=== PATIENT | male | born 1975 | race Two or more races ===

== ENCOUNTER 2017-08-29 18:06 | Inpatient (IN) | payer MEDICAID ==
[~2017-08-29] VITALS: Ht 162.6 cm; Wt 77.1 kg
[2017-08-29] MEDS ORDERED: LORazepam Inj 2mg/ml 1ml IV ONE (18:30)
--- NOTE | 2017-08-29 18:57 | Emergency Room Report ---
History of Present Illness General Chief Complaint: Gastrointestinal Bleed Source: Patient Present Illness HPI Patient's 42-year-old male brought in by family member after increased hematemesis. The patient had had prior history of alcohol abuse. He reportedly has not had alcohol for one week. The patient reported having generalized chills. He denies any prior history of liver disease. He reported having generalized body ache. Allergies: Coded Allergies: No Known Allergies (Unverified , 08/29/17) Patient History Past Medical History: see triage record Reviewed Nursing Documentation: PMH: Agreed, PSxH: Agreed Nursing Documentation-PMH Past Medical History: No Stated History Review of Systems All Other Systems: negative except mentioned in HPI Physical Exam Vital Signs Date Time Temp Pulse Resp B/P (MAP) Pulse Ox O2 Delivery O2 Flow Rate FiO2 08/29/17 18:12 101.1 106 18 133/75 98 Room Air Sp02 EP Interpretation: reviewed, normal General Appearance: normal inspection, well appearing, no apparent distress, alert, GCS 15 Head: atraumatic ENT: normal ENT inspection, hearing grossly normal, normal voice Neck: normal inspection, full range of motion, supple, no bony tend Respiratory: normal inspection, lungs clear, normal breath sounds, no respiratory distress, no retraction, no wheezing Cardiovascular #1: regular rate, rhythm, no edema Gastrointestinal: normal inspection, normal bowel sounds, non tender, soft, no guarding, no hernia Genitourinary: no CVA tenderness Musculoskeletal: normal inspection, back normal, normal range of motion Neurologic: normal inspection, alert, oriented x3, responsive, speech normal Psychiatric: normal inspection, judgement/insight normal, mood/affect normal Skin: normal inspection, normal color, no rash Medical Decision Making Diagnostic Impression: Primary Impression: Gastrointestinal hemorrhage Additional Impressions: Influenza B Thrombocytopenia Cirrhosis Mild epistaxis ER Course Patient presented with fever and vomiting. Differential diagnosis included wasn 't limited to pneumonia, urinary tract infection, drug fever, allergic reaction , sepsis, cholecystitis, alcohol withdrawal among others.The patient was noted to be febrile. The patient was consented for platelet transfusion . He was noted to be thrombocytopenic with a platelet count of 30s. Patient was noted to have any active hemorrhage in emergency department. Did not appear to require transfusion as initial hgb was adequate. Patient was positive for influenza A. The patient was given IV protonix. Dr. Das was contacted for for inpatient management Labs Test 08/29/17 18:50 White Blood Count 6.5 K/UL (4.8-10.8) Red Blood Count 3.56 M/UL (4.70-6.10) Hemoglobin 12.3 G/DL (14.2-18.0) Hematocrit 36.4 % (42.0-52.0) Mean Corpuscular Volume 102 FL (80-99) Mean Corpuscular Hemoglobin 34.4 PG (27.0-31.0) Mean Corpuscular Hemoglobin Concent 33.7 G/DL (32.0-36.0) Red Cell Distribution Width 12.9 % (11.6-14.8) Platelet Count 36 K/UL (150-450) Mean Platelet Volume 8.3 FL (6.5-10.1) Neutrophils (%) (Auto) % (45.0-75.0) Lymphocytes (%) (Auto) % (20.0-45.0) Monocytes (%) (Auto) % (1.0-10.0) Eosinophils (%) (Auto) % (0.0-3.0) Basophils (%) (Auto) % (0.0-2.0) Differential Total Cells Counted 100 Neutrophils % (Manual) 47 % (45-75) Lymphocytes % (Manual) 46 % (20-45) Monocytes % (Manual) 3 % (1-10) Eosinophils % (Manual) 0 % (0-3) Basophils % (Manual) 0 % (0-2) Band Neutrophils 4 % (0-8) Platelet Estimate Decreased Platelet Morphology Normal Polychromasia 1+ Macrocytosis 2+ Prothrombin Time 19.4 SEC (9.30-11.50) Prothromb Time International Ratio 1.8 (0.9-1.1) Activated Partial Thromboplast Time 51 SEC (23-33) Urine Color Kamila Urine Appearance Clear Urine pH 6 (4.5-8.0) Urine Specific [place] 1.015 (1.005-1.035) Urine Protein 1+ (NEGATIVE) Urine Glucose (UA) Negative (NEGATIVE) Urine Ketones Negative (NEGATIVE) Urine Occult Blood 3+ (NEGATIVE) Urine Nitrite Negative (NEGATIVE) Urine Bilirubin Negative (NEGATIVE) Urine Ictotest Positive Urine Urobilinogen Normal MG/DL (0.0-1.0) Urine Leukocyte Esterase 1+ (NEGATIVE) Urine RBC 2-4 /HPF (0 - 0) Urine WBC 2-4 /HPF (0 - 0) Urine Squamous Epithelial Cells Few /LPF (NONE/OCC) Urine Bacteria Occasional /HPF (NONE) Sodium Level 129 MMOL/L (136-145) Potassium Level 3.2 MMOL/L (3.5-5.1) Chloride Level 95 MMOL/L (98-107) Carbon Dioxide Level 24 MMOL/L (21-32) Anion Gap 10 mmol/L (5-15) Blood Urea Nitrogen 8 mg/dL (7-18) Creatinine 1.0 MG/DL (0.55-1.30) Estimat Glomerular Filtration Rate > 60 mL/min (>60) Glucose Level 102 MG/DL (74-106) Lactic Acid Level 1.30 mmol/L (0.66-2.22) Calcium Level 7.9 MG/DL (8.5-10.1) Total Bilirubin 1.8 MG/DL (0.2-1.0) Direct Bilirubin 1.0 MG/DL (0.0-0.3) Aspartate Amino Transf (AST/SGOT) 197 U/L (15-37) Alanine Aminotransferase (ALT/SGPT) 48 U/L (12-78) Alkaline Phosphatase 123 U/L (46-116) Total Creatine Kinase 944 U/L (26-308) Creatine Kinase MB 3.5 NG/ML (0.0-3.6) Creatine Kinase MB Relative Index 0.3 Troponin I 0.036 ng/mL (0.000-0.056) Total Protein 8.3 G/DL (6.4-8.2) Albumin 2.8 G/DL (3.4-5.0) Globulin 5.5 g/dL Albumin/Globulin Ratio 0.5 (1.0-2.7) Last Vital Signs Date Time Temp Pulse Resp B/P (MAP) Pulse Ox O2 Delivery O2 Flow Rate FiO2 08/29/17 18:12 101.1 106 18 133/75 98 Room Air Status: improved Disposition: HOME, SELF-CARE Condition: Stable Referrals: NOT CHOSEN IPA/,REFERRING (PCP) Hermes Wagoner Aug 29, 2017 18:57
[2017-08-29 19:10] VITALS: BP 141/69
[2017-08-29 19:41] LABS: HEMATOCRIT 36.4 % (42.0-52.0); HEMOGLOBIN 12.3 G/DL (14.2-18.0); MEAN CORPUSCULAR VOLUME 102 FL (80-99); PLATELET COUNT 36 K/UL (150-450); RED BLOOD COUNT 3.56 M/UL (4.70-6.10); RED CELL DISTRIBUTION WIDTH 12.9 % (11.6-14.8); WHITE BLOOD COUNT 6.5 K/UL (4.8-10.8)
[2017-08-29 19:43] LABS: APPEARANCE,URINE CLEAR; BILIRUBIN, URINE NEGATIVE (NEGATIVE); GLUCOSE, URINE (UA) NEGATIVE (NEGATIVE); KETONES,URINE NEGATIVE (NEGATIVE); LEUKOCYTE ESTERASE ,URINE 1+ (NEGATIVE); NITRITE,URINE NEGATIVE (NEGATIVE); PH,URINE 6 (4.5-8.0); PROTEIN,URINE 1+ (NEGATIVE); UROBILINOGEN,URINE NORMAL MG/DL (0.0-1.0)
[2017-08-29 19:50] LABS: COLOR,URINE AMBER
[2017-08-29] MEDS ORDERED: NKM (19:50)
[2017-08-29 19:57] LABS: INR 1.8 (0.9-1.1)
[2017-08-29] MEDS ORDERED: cefTRIAXone 1 GM in NS 55 ML IVPB ONE (20:15)
[2017-08-29 20:20] LABS: ANION GAP 10 mmol/L (5-15); BLOOD UREA NITROGEN 8 mg/dL (7-18); CALCIUM 7.9 MG/DL (8.5-10.1); CARBON DIOXIDE 24 MMOL/L (21-32); CHLORIDE 95 MMOL/L (98-107); POTASSIUM 3.2 MMOL/L (3.5-5.1); SODIUM 129 MMOL/L (136-145)
[2017-08-29] MEDS ORDERED: Azithromycin 250 MG in D5W 275 ML IVPB SCH (20:30)
[2017-08-29] MEDS ORDERED: Oseltamivir 75mg cap ORAL SCH (20:30)
[2017-08-29] MEDS ORDERED: Azithromycin 500mg Inj IV ONE (20:39)
[2017-08-29 20:43] LABS: ALANINE AMINOTRANSFERASE 48 U/L (12-78); ALBUMIN 2.8 G/DL (3.4-5.0); ALBUMIN/GLOBULIN RATIO 0.5 (1.0-2.7); ALKALINE PHOSPHATASE 123 U/L (46-116); ASPARTATE AMINO TRANSFERASE 197 U/L (15-37); BILIRUBIN,TOTAL 1.8 MG/DL (0.2-1.0); CKMB 3.5 NG/ML (0.0-3.6); CREATINE KINASE 944 U/L (26-308)
[2017-08-29 21:00] VITALS: BP 142/67
[2017-08-29] MEDS ORDERED: Pantoprazole Inj IVP ONE (21:45)
[2017-08-29 23:00] VITALS: BP 132/62
[2017-08-29] MEDS ORDERED: Miralax 17gm pkt ORAL PRN (23:00)
[2017-08-29] MEDS ORDERED: Pantoprazole 80 MG in NS 250 ML IV SCH (23:00)
[2017-08-29] MEDS ORDERED: Mylanta II UD 30ml ORAL PRN (23:00)
[2017-08-29] MEDS ORDERED: LORazepam Inj 2mg/ml 1ml IV PRN (23:00)
[2017-08-29] MEDS: Thiamine HCl 100 MG, Folic Acid 1 MG, Magnesium Sulfate 2,000 MG, Multivitamin - 12 Inj... IV SCH ×5 (23:30)
[2017-08-30] VITALS (9 sets, daily range): BP systolic 113–149; BP diastolic 36–92
[2017-08-30] MEDS ORDERED: chlordiazePOXIDE 25mg Cap ORAL ONE (00:15)
[2017-08-30] MEDS ORDERED: LORazepam Inj 2mg/ml 1ml IV ONE (00:15)
[2017-08-30] MEDS ORDERED: Pantoprazole Inj ONE (00:25)
[2017-08-30] MEDS: Thiamine HCl 100 MG, Folic Acid 1 MG, Magnesium Sulfate 2,000 MG, Multivitamin - 12 Inj... IV SCH ×20 (01:02→07:08)
[2017-08-30] MEDS: Octreotide Acetate 500 MCG in Sodium Chloride 500ML 499 ML IV SCH ×4 (01:48→21:20)
[2017-08-30] MEDS ORDERED: Thiamine HCl 100mg/ml 2 ml Inj ONE ×2 (03:38→12:02)
[2017-08-30] MEDS ORDERED: Folic Acid 5mg/ml Vial IV ONE (03:39)
[2017-08-30] MEDS ORDERED: MVI-12 10ml Inj IV ONE (03:40)
[2017-08-30 04:54] LABS: HEMATOCRIT 32.6 % (42.0-52.0); HEMOGLOBIN 11.1 G/DL (14.2-18.0); MEAN CORPUSCULAR VOLUME 102 FL (80-99); PLATELET COUNT 73 K/UL (150-450); RED BLOOD COUNT 3.19 M/UL (4.70-6.10); RED CELL DISTRIBUTION WIDTH 12.8 % (11.6-14.8); WHITE BLOOD COUNT 7.5 K/UL (4.8-10.8)
[2017-08-30 05:15] LABS: ANION GAP 10 mmol/L (5-15); BLOOD UREA NITROGEN 8 mg/dL (7-18); CALCIUM 7.6 MG/DL (8.5-10.1); CARBON DIOXIDE 22 MMOL/L (21-32); CHLORIDE 97 MMOL/L (98-107); POTASSIUM 2.9 MMOL/L (3.5-5.1); SODIUM 129 MMOL/L (136-145)
[2017-08-30 05:18] LABS: ALANINE AMINOTRANSFERASE 41 U/L (12-78); ALBUMIN 2.6 G/DL (3.4-5.0); ALKALINE PHOSPHATASE 106 U/L (46-116); ASPARTATE AMINO TRANSFERASE 160 U/L (15-37); BILIRUBIN,DIRECT 1.2 MG/DL (0.0-0.3); INR 1.8 (0.9-1.1)
[2017-08-30] MEDS ORDERED: D5 1/2NS w/KCl 40meq 1000ml 1,000 ML IV SCH (07:00)
--- NOTE | 2017-08-30 08:58 | General Progress Note ---
Assessment/Plan Problem List: (1) Cirrhosis ICD Codes: K74.60 - Unspecified cirrhosis of liver SNOMED: 65044430 (2) Thrombocytopenia ICD Codes: D69.6 - Thrombocytopenia, unspecified SNOMED: 948924362 (3) Gastrointestinal hemorrhage ICD Codes: K92.2 - Gastrointestinal hemorrhage, unspecified SNOMED: 22387430 Assessment/Plan npo ppi abx octreotide EGD in AM vit K Subjective ROS Limited/Unobtainable: Yes Allergies: Coded Allergies: No Known Allergies (Unverified , 08/29/17) Objective Last 24 Hour Vital Signs Date Time Temp Pulse Resp B/P (MAP) Pulse Ox O2 Delivery O2 Flow Rate FiO2 08/30/17 06:53 100.5 97 16 137/67 98 Room Air 08/30/17 04:30 100.5 93 19 08/30/17 04:00 99.6 109 22 08/30/17 03:30 99.5 102 15 08/30/17 03:30 99.5 102 15 122/82 100 Room Air 08/30/17 02:45 100.5 107 21 08/30/17 02:30 101.9 110 21 08/30/17 01:22 101.1 107 23 129/69 99 Room Air 08/29/17 23:00 100.9 99 20 132/62 99 Room Air 08/29/17 21:00 100.9 104 21 142/67 99 Room Air 08/29/17 19:10 100.0 98 20 141/69 100 Room Air 08/29/17 18:12 101.1 106 18 133/75 98 Room Air Intake and Output 08/29/17 08/30/17 19:00 07:00 Intake Total 327 ml Output Total 60 ml Balance 267 ml Intake Oral 30 ml Blood Product 297 ml Output Urine Total 60 ml # Voids 5 Laboratory Tests 08/29/17 18:50: White Blood Count 6.5, Red Blood Count 3.56L, Hemoglobin 12.3L, Hematocrit 36.4L , Mean Corpuscular Volume 102H, Mean Corpuscular Hemoglobin 34.4H, Mean Corpuscular Hemoglobin Concent 33.7, Red Cell Distribution Width 12.9, Platelet Count 36L, Mean Platelet Volume 8.3, Neutrophils (%) (Auto) , Lymphocytes (%) ( Auto) , Monocytes (%) (Auto) , Eosinophils (%) (Auto) , Basophils (%) (Auto) , Differential Total Cells Counted 100, Neutrophils % (Manual) 47, Lymphocytes % ( Manual) 46H, Monocytes % (Manual) 3, Eosinophils % (Manual) 0, Basophils % ( Manual) 0, Band Neutrophils 4, Platelet Estimate DecreasedL, Platelet Morphology Normal, Polychromasia 1+, Macrocytosis 2+, Prothrombin Time 19.4H, Prothromb Time International Ratio 1.8H, Activated Partial Thromboplast Time 51H , Urine Color Kamila, Urine Appearance Clear, Urine pH 6, Urine Specific [place] 1.015, Urine Protein 1+H, Urine Glucose (UA) Negative, Urine Ketones Negative, Urine Occult Blood 3+H, Urine Nitrite Negative, Urine Bilirubin Negative, Urine Ictotest Positive, Urine Urobilinogen Normal, Urine Leukocyte Esterase 1+H, Urine RBC 2-4H, Urine WBC 2-4, Urine Squamous Epithelial Cells Few, Urine Bacteria Occasional, Sodium Level 129L, Potassium Level 3.2L, Chloride Level 95L , Carbon Dioxide Level 24, Anion Gap 10, Blood Urea Nitrogen 8, Creatinine 1.0, Estimat Glomerular Filtration Rate > 60, Glucose Level 102, Lactic Acid Level 1.30, Calcium Level 7.9L, Total Bilirubin 1.8H, Direct Bilirubin 1.0H, Aspartate Amino Transf (AST/SGOT) 197H, Alanine Aminotransferase (ALT/SGPT) 48, Alkaline Phosphatase 123H, Total Creatine Kinase 944H, Creatine Kinase MB 3.5, Creatine Kinase MB Relative Index 0.3, Troponin I 0.036, Total Protein 8.3H, Albumin 2.8L, Globulin 5.5, Albumin/Globulin Ratio 0.5L 08/30/17 04:35: White Blood Count 7.5, Red Blood Count 3.19L, Hemoglobin 11.1L, Hematocrit 32.6L , Mean Corpuscular Volume 102H, Mean Corpuscular Hemoglobin 34.8H, Mean Corpuscular Hemoglobin Concent 34.0, Red Cell Distribution Width 12.8, Platelet Count 73#L, Mean Platelet Volume 6.4L, Neutrophils (%) (Auto) , Lymphocytes (%) (Auto) , Monocytes (%) (Auto) , Eosinophils (%) (Auto) , Basophils (%) (Auto) , Differential Total Cells Counted 100, Neutrophils % (Manual) 58, Lymphocytes % ( Manual) 39, Monocytes % (Manual) 3, Eosinophils % (Manual) 0, Basophils % ( Manual) 0, Band Neutrophils 0, Platelet Estimate DecreasedL, Platelet Morphology Normal, Prothrombin Time 19.4H, Prothromb Time International Ratio 1.8H, Sodium Level 129L, Potassium Level 2.9L, Chloride Level 97L, Carbon Dioxide Level 22, Anion Gap 10, Blood Urea Nitrogen 8, Creatinine 1.0, Estimat Glomerular Filtration Rate > 60, Glucose Level 108H, Calcium Level 7.6L, Total Bilirubin 2.0H, Direct Bilirubin 1.2H, Aspartate Amino Transf (AST/SGOT) 160H, Alanine Aminotransferase (ALT/SGPT) 41, Alkaline Phosphatase 106, Total Protein 7.7, Albumin 2.6L, Magnesium Level 1.4L, Hepatitis A IgM Antibody [Pending], Hepatitis B Surface Antigen [Pending], Hepatitis B Core IgM Antibody [Pending], Hepatitis C Antibody [Pending] Height (Feet): 5 Height (Inches): 4.00 Weight (Pounds): 170 General Appearance: alert EENT: normal ENT inspection Neck: supple Cardiovascular: tachycardia Respiratory/Chest: decreased breath sounds Abdomen: normal bowel sounds, non tender, soft Extremities: non-tender ANAND MCKEON Aug 30, 2017 08:58
[2017-08-30] MEDS ORDERED: POTASSIUM CHLORIDE IVPB ONE (09:00)
[2017-08-30] MEDS ORDERED: NS IVPB ONE (09:00)
[2017-08-30] MEDS: Docusate 100mg cap ORAL SCH ×2 (09:09→21:00)
[2017-08-30] MEDS: Oseltamivir 75mg cap ORAL SCH ×2 (09:10→18:21)
--- NOTE | 2017-08-30 09:29 | Diagnostic Imaging Report ---
Indication: Reason For Exam: SOB Technique: XRAY Chest 1v Comparison: None. Findings: The patient has taken a poor inspiration. The cardiomediastinal silhouette is normal. The lungs are clear. There is no evidence of pleural fluid. The bony structures are unremarkable. Impression: Poor inspiratory chest. Otherwise grossly negative.
[2017-08-30] MEDS: D5 1/2NS w/KCl 40meq 1000ml 1,000 ML IV SCH ×2 (09:38→18:21)
[2017-08-30] MEDS ORDERED: Phytonadione 1 MG in D5W 55 ML IVPB ONE (10:30)
[2017-08-30] MEDS: FOLIC ACID IV SCH (11:00)
[2017-08-30] MEDS: MAGNESIUM SULFATE IV SCH (11:00)
[2017-08-30] MEDS: [UNRECOGNIZED DRUG - OTHER] IV SCH (11:00)
[2017-08-30] MEDS: MULTIVITAMIN IV SCH (11:00)
[2017-08-30] MEDS: Thiamine HCl 100 MG in NS 55 ML IVPB SCH (12:08)
[2017-08-30] MEDS: Pantoprazole Inj IVP SCH ×2 (12:42→21:21)
[2017-08-30] MEDS ORDERED: Azithromycin 250mg tab ORAL SCH (18:00)
[2017-08-30] MEDS: Azithromycin 250mg tab ORAL SCH (18:20)
[2017-08-30] MEDS: cefTRIAXone 1 GM in NS 55 ML IVPB SCH (19:09)
--- NOTE | 2017-08-30 19:12 | History and Physical ---
History of Present Illness General Date patient seen: Aug 30, 2017 Time patient seen: 19:12 Reason for Hospitalization: Gastrointestinal Bleed Present Illness HPI This is 42-year-old male with past medical history significnat for alcoholic cirrhosis, brought in by family member after increased hematemesis. The patient had had prior history of alcohol abuse. He reportedly has not had alcohol for one week. The patient reported having generalized chills. . He reported having generalized body ache. He endorses fevers, cough and sorethroat. He has been vomiting blood for the past 4 days. In the ED he was found to be influenza B postive. He was started on tamiflu. Plt noted to be 36. INR 1.8. He was given one unit of plt and started on PPI and octreotide. GI has been consulted. Allergies: Coded Allergies: No Known Allergies (Unverified , 08/29/17) Medication History Scheduled No Known Medications* (NKM - No Known Medications*), 0 ., (Reported) Patient History Healthcare decision maker Helen Gil Resuscitation status Full Code Advanced Directive on File Review of Systems All Other Systems: negative except mentioned in HPI Physical Exam General Appearance: no apparent distress, alert, lethargic HEENT: normocephalic, atraumatic Neck: non-tender, normal alignment Respiratory/Chest: chest wall non-tender, lungs clear, normal breath sounds Cardiovascular/Chest: normal peripheral pulses, normal rate, regular rhythm Abdomen: normal bowel sounds, non tender, soft Neurologic: alert, oriented x 3, responsive Last 24 Hour Vital Signs Date Time Temp Pulse Resp B/P (MAP) Pulse Ox O2 Delivery O2 Flow Rate FiO2 08/30/17 17:04 97.3 78 18 113/92 98 Room Air 08/30/17 16:00 75 08/30/17 13:45 92 08/30/17 13:25 79 15 114/55 100 Room Air 08/30/17 13:25 79 15 114/55 100 Room Air 08/30/17 12:00 81 20 131/63 100 Room Air 08/30/17 10:00 90 22 145/88 100 Room Air 08/30/17 07:30 88 16 126/36 99 Room Air 08/30/17 06:53 100.5 97 16 137/67 98 Room Air 08/30/17 04:30 100.5 93 19 08/30/17 04:00 99.6 109 22 08/30/17 03:30 99.5 102 15 08/30/17 03:30 99.5 102 15 122/82 100 Room Air 08/30/17 02:45 100.5 107 21 08/30/17 02:30 101.9 110 21 08/30/17 01:22 101.1 107 23 129/69 99 Room Air 08/29/17 23:00 100.9 99 20 132/62 99 Room Air 08/29/17 21:00 100.9 104 21 142/67 99 Room Air 08/29/17 19:10 100.0 98 20 141/69 100 Room Air Intake and Output 08/29/17 08/30/17 19:00 07:00 Intake Total 327 ml Output Total 60 ml Balance 267 ml Intake Oral 30 ml Blood Product 297 ml Output Urine Total 60 ml # Voids 5 Laboratory Tests Test 08/30/17 04:35 White Blood Count 7.5 K/UL (4.8-10.8) Red Blood Count 3.19 M/UL (4.70-6.10) L Hemoglobin 11.1 G/DL (14.2-18.0) L Hematocrit 32.6 % (42.0-52.0) L Mean Corpuscular Volume 102 FL (80-99) H Mean Corpuscular Hemoglobin 34.8 PG (27.0-31.0) H Mean Corpuscular Hemoglobin Concent 34.0 G/DL (32.0-36.0) Red Cell Distribution Width 12.8 % (11.6-14.8) Platelet Count 73 K/UL (150-450) #L Mean Platelet Volume 6.4 FL (6.5-10.1) L Neutrophils (%) (Auto) % (45.0-75.0) Lymphocytes (%) (Auto) % (20.0-45.0) Monocytes (%) (Auto) % (1.0-10.0) Eosinophils (%) (Auto) % (0.0-3.0) Basophils (%) (Auto) % (0.0-2.0) Differential Total Cells Counted 100 Neutrophils % (Manual) 58 % (45-75) Lymphocytes % (Manual) 39 % (20-45) Monocytes % (Manual) 3 % (1-10) Eosinophils % (Manual) 0 % (0-3) Basophils % (Manual) 0 % (0-2) Band Neutrophils 0 % (0-8) Platelet Estimate Decreased L Platelet Morphology Normal Prothrombin Time 19.4 SEC (9.30-11.50) H Prothromb Time International Ratio 1.8 (0.9-1.1) H Sodium Level 129 MMOL/L (136-145) L Potassium Level 2.9 MMOL/L (3.5-5.1) L Chloride Level 97 MMOL/L (98-107) L Carbon Dioxide Level 22 MMOL/L (21-32) Anion Gap 10 mmol/L (5-15) Blood Urea Nitrogen 8 mg/dL (7-18) Creatinine 1.0 MG/DL (0.55-1.30) Estimat Glomerular Filtration Rate > 60 mL/min (>60) Glucose Level 108 MG/DL (74-106) H Calcium Level 7.6 MG/DL (8.5-10.1) L Magnesium Level 1.4 MG/DL (1.8-2.4) L Total Bilirubin 2.0 MG/DL (0.2-1.0) H Direct Bilirubin 1.2 MG/DL (0.0-0.3) H Aspartate Amino Transf (AST/SGOT) 160 U/L (15-37) H Alanine Aminotransferase (ALT/SGPT) 41 U/L (12-78) Alkaline Phosphatase 106 U/L (46-116) Total Protein 7.7 G/DL (6.4-8.2) Albumin 2.6 G/DL (3.4-5.0) L Hepatitis A IgM Antibody Pending Hepatitis B Surface Antigen Pending Hepatitis B Core IgM Antibody Pending Hepatitis C Antibody Pending Height (Feet): 5 Height (Inches): 4.00 Weight (Pounds): 170 Medications Current Medications Medications (Trade) Dose Ordered Sig/Barron Route PRN Reason Start Time Stop Time Status Last Admin Dose Admin Al Hydroxide/Mg Hydroxide (Mylanta II) 30 ml Q6H PRN ORAL dyspepsia 08/29/17 23:00 09/28/17 22:59 Azithromycin (Zithromax) 500 mg Q24HRS ORAL 08/30/17 18:00 09/06/17 17:59 08/30/17 18:20 Bisacodyl (Dulcolax) 10 mg DAILYPRN PRN RECTAL Constipation 08/29/17 23:00 09/28/17 22:59 Ceftriaxone Sodium 1 gm/ Sodium Chloride 55 ml @ 110 mls/hr Q24HRS IVPB 08/30/17 18:00 09/06/17 17:59 Dextrose (Dextrose 50%) STAT PRN IV Hypoglycemia 08/29/17 23:00 09/28/17 22:59 Dextrose/ Electrolytes 1,000 ml @ 100 mls/hr Q10H IV 08/30/17 08:00 09/29/17 07:59 08/30/17 18:21 Diphenhydramine HCl (Benadryl) 25 mg Q6H PRN ORAL Itching/Pruritis 08/29/17 23:00 09/28/17 22:59 Docusate Sodium (Colace) 100 mg EVERY 12 HOURS ORAL 08/30/17 09:00 09/29/17 08:59 08/30/17 09:09 Folic Acid 1 mg/ Multivitamins 10 ml/Magnesium Sulfate 2000 mg/ Sodium Chloride 1,014.2 ml @ 100 mls/ hr DAILY@1100 IV 08/30/17 11:00 09/29/17 10:59 Lorazepam (Ativan 2mg/ml 1ml) 1 mg Q2HR PRN IV for alcohol withdrawal 08/29/17 23:00 09/05/17 22:59 Octreotide Acetate 500 mcg/ Sodium Chloride 500 ml @ 50 mls/hr Q10H IV 08/30/17 12:00 09/29/17 11:59 Ondansetron HCl (Zofran) 4 mg Q6H PRN IVP Nausea & Vomiting 08/29/17 23:00 09/28/17 22:59 Oseltamivir Phosphate (Tamiflu) 75 mg TWICE A DAY ORAL 08/30/17 09:00 09/04/17 08:59 08/30/17 18:21 Pantoprazole (Protonix) 40 mg EVERY 12 HOURS IVP 08/30/17 09:00 09/29/17 08:59 08/30/17 12:42 Polyethylene Glycol (Miralax) 17 gm DAILYPRN PRN ORAL Constipation 08/29/17 23:00 09/28/17 22:59 Prochlorperazine (Compazine) 10 mg Q6H PRN IVP Nausea & Vomiting 08/29/17 23:00 09/28/17 22:59 Thiamine HCl 100 mg/Sodium Chloride 56 ml @ 56 mls/hr DAILY@1100 IVPB 08/30/17 11:00 09/29/17 10:59 08/30/17 12:08 Assessment/Plan Assessment/Plan GI bleed cirrhosis thrombocytopenia alcohol use disorder influenza fever sepsis Plan: admit inpatient monitor CBC monitor for bleeding npo ppi abx octreotide EGD in AM vit K DVT ppx GI ppx Malaika Marmolejo M.D. Aug 30, 2017 19:12
[2017-08-31] VITALS (12 sets, daily range): BP systolic 127–162; BP diastolic 57–90
[2017-08-31] MEDS ORDERED: LORazepam Inj 2mg/ml 1ml IV PRN ×2 (00:30→12:30)
[2017-08-31] MEDS: D5 1/2NS w/KCl 40meq 1000ml 1,000 ML IV SCH (04:31)
[2017-08-31 07:17] LABS: HEMATOCRIT 31.6 % (42.0-52.0); HEMOGLOBIN 10.4 G/DL (14.2-18.0); MEAN CORPUSCULAR VOLUME 105 FL (80-99); PLATELET COUNT 57 K/UL (150-450); WHITE BLOOD COUNT 4.2 K/UL (4.8-10.8)
[2017-08-31 07:27] LABS: AMMONIA 44 umol/L (11-32); INR 1.5 (0.9-1.1)
[2017-08-31 07:42] LABS: ALANINE AMINOTRANSFERASE 37 U/L (12-78); ALBUMIN 2.3 G/DL (3.4-5.0); ALBUMIN/GLOBULIN RATIO 0.5 (1.0-2.7); ALKALINE PHOSPHATASE 90 U/L (46-116); ANION GAP 8 mmol/L (5-15); ASPARTATE AMINO TRANSFERASE 136 U/L (15-37); BILIRUBIN,TOTAL 2.9 MG/DL (0.2-1.0); BLOOD UREA NITROGEN 8 mg/dL (7-18); CALCIUM 7.4 MG/DL (8.5-10.1); CARBON DIOXIDE 22 MMOL/L (21-32); CHLORIDE 105 MMOL/L (98-107); CREATININE 0.8 MG/DL (0.55-1.30); POTASSIUM 4.2 MMOL/L (3.5-5.1); SODIUM 135 MMOL/L (136-145)
[2017-08-31] MEDS: Docusate 100mg cap ORAL SCH ×2 (08:10→21:55)
[2017-08-31] MEDS: Octreotide Acetate 500 MCG in Sodium Chloride 500ML 499 ML IV SCH ×2 (08:10→18:09)
[2017-08-31] MEDS: Oseltamivir 75mg cap ORAL SCH ×2 (08:10→17:54)
[2017-08-31] MEDS: Pantoprazole Inj IVP SCH ×2 (08:11→21:55)
[2017-08-31] MEDS: MULTIVITAMIN IV SCH (11:00)
[2017-08-31] MEDS: [UNRECOGNIZED DRUG - OTHER] IV SCH (11:00)
[2017-08-31] MEDS: FOLIC ACID IV SCH (11:00)
[2017-08-31] MEDS: MAGNESIUM SULFATE IV SCH (11:00)
[2017-08-31] MEDS ORDERED: DiphenhydrAMINE 50mg/ml Inj IM ONE (11:30)
[2017-08-31] MEDS ORDERED: Haloperidol 5mg/ml Inj IM ONE (11:30)
[2017-08-31] MEDS ORDERED: LORazepam Inj 2mg/ml 1ml IM ONE (11:30)
[2017-08-31] MEDS: Thiamine HCl 100 MG in NS 55 ML IVPB SCH (12:17)
--- NOTE | 2017-08-31 12:19 | General Progress Note ---
Assessment/Plan Problem List: (1) Severe alcohol withdrawal delirium ICD Codes: F10.231 - Alcohol dependence with withdrawal delirium SNOMED: 3013300 (2) Acute upper gastrointestinal bleeding ICD Codes: K92.2 - Gastrointestinal hemorrhage, unspecified SNOMED: 05801771 (3) Cirrhosis ICD Codes: K74.60 - Unspecified cirrhosis of liver SNOMED: 79823698 (4) Acute blood loss anemia ICD Codes: D62 - Acute posthemorrhagic anemia SNOMED: 594018503 (5) Coagulopathy ICD Codes: D68.9 - Coagulation defect, unspecified SNOMED: 38642936 (6) Influenza B ICD Codes: J10.1 - Influenza due to other identified influenza virus with other respiratory manifestations SNOMED: 14794563 (7) Sepsis ICD Codes: A41.9 - Sepsis, unspecified organism SNOMED: 00552023 (8) Hypokalemia ICD Codes: E87.6 - Hypokalemia SNOMED: 30554156 (9) Hyponatremia ICD Codes: E87.1 - Hypo-osmolality and hyponatremia SNOMED: 67212290 (10) Thrombocytopenia ICD Codes: D69.6 - Thrombocytopenia, unspecified SNOMED: 662527278 (11) Alcohol use disorder ICD Codes: F10.99 - Alcohol use, unspecified with unspecified alcohol-induced disorder SNOMED: 257765, 15389469 (12) Alcohol dependence ICD Codes: F10.20 - Alcohol dependence, uncomplicated SNOMED: 55977453 Status: unchanged Assessment/Plan Appreciate GI rec's Awaiting endoscopy once pt more stable s/p 1U plts in ED Trend CBC, INR PPI gtt Octreotide gtt Psych consulted, appreciate rec's Ativan IV PRN alcohol withdrawal Banana bag q24h mIVFs Trend BMP Tamiflu for Influenza B x 5 days DVT ppx: SCDs FULL CODE D/w pt/family, RN, SW/CM, psych, GI regarding mgmt and dispo Subjective Date patient seen: Aug 31, 2017 Time patient seen: 12:00 ROS Limited/Unobtainable: Yes Allergies: Coded Allergies: No Known Allergies (Unverified , 08/29/17) Subjective Extremely agitated o/n despite receiving several doses of Ativan IV Seen by psych and given haldol and benadryl w/ good response Pt now asleep Objective Last 24 Hour Vital Signs Date Time Temp Pulse Resp B/P (MAP) Pulse Ox O2 Delivery O2 Flow Rate FiO2 08/31/17 04:20 96.6 90 20 162/69 97 Room Air 08/31/17 04:00 81 08/31/17 00:00 82 08/30/17 23:37 98.4 79 18 149/74 98 Room Air 08/30/17 17:04 97.3 78 18 113/92 98 Room Air 08/30/17 16:00 75 08/30/17 13:45 92 08/30/17 13:25 79 15 114/55 100 Room Air 08/30/17 13:25 79 15 114/55 100 Room Air Intake and Output 08/30/17 08/31/17 19:00 07:00 Intake Total 500 ml 333 ml Output Total 0 ml Balance 500 ml 333 ml IV Total 500 ml 333 ml Output Urine Total 0 ml # Voids 1 # Bowel Movements 1 2 Laboratory Tests 08/31/17 05:05: White Blood Count 4.2L, Red Blood Count 3.00L, Hemoglobin 10.4L, Hematocrit 31.6L, Mean Corpuscular Volume 105H, Mean Corpuscular Hemoglobin 34.8H, Mean Corpuscular Hemoglobin Concent 33.0, Red Cell Distribution Width 13.0, Platelet Count 57L, Mean Platelet Volume 7.7, Neutrophils (%) (Auto) , Lymphocytes (%) ( Auto) , Monocytes (%) (Auto) , Eosinophils (%) (Auto) , Basophils (%) (Auto) , Differential Total Cells Counted 100, Neutrophils % (Manual) 54, Lymphocytes % ( Manual) 31, Monocytes % (Manual) 15H, Eosinophils % (Manual) 0, Basophils % ( Manual) 0, Band Neutrophils 0, Platelet Estimate DecreasedL, Platelet Morphology Normal, Hypochromasia 1+, Anisocytosis 1+, Macrocytosis 1+, Prothrombin Time 15.9H, Prothromb Time International Ratio 1.5H, Sodium Level 135L, Potassium Level 4.2, Chloride Level 105, Carbon Dioxide Level 22, Anion Gap 8, Blood Urea Nitrogen 8, Creatinine 0.8, Estimat Glomerular Filtration Rate > 60, Glucose Level 106, Calcium Level 7.4L, Total Bilirubin 2.9H, Direct Bilirubin 1.0H, Aspartate Amino Transf (AST/SGOT) 136H, Alanine Aminotransferase (ALT/SGPT) 37, Alkaline Phosphatase 90, Ammonia 44H, Total Protein 7.0, Albumin 2.3L, Globulin 4.7, Albumin/Globulin Ratio 0.5L, Alpha Fetoprotein [Pending] Height (Feet): 5 Height (Inches): 4.00 Weight (Pounds): 170 Objective General: alert, cooperative, no distress, appears stated age, sedated Head: normocephalic, without obvious abnormality, atraumatic Eyes: conjunctivae/corneas clear. PERRL, EOM's intact Throat: lips, mucosa, and tongue normal. MMM Neck: supple, symmetrical, trachea midline, and no JVD Lungs: clear to auscultation bilaterally Heart: regular rate and rhythm, S1, S2 normal, no murmur, click, rub or gallop Abdomen: soft, non-tender, non-distended, bowel sounds normal Extremities: extremities normal, atraumatic, no cyanosis or edema Pulses: 2+ and symmetric Skin: skin color, texture, turgor normal; no rashes or lesions Neurologic: grossly normal, no focal deficits Thiago Dangelo M.D. Aug 31, 2017 12:19
--- NOTE | 2017-08-31 12:53 | Pre-Procedure Note/Attestation ---
Pre-Procedure Note/Attestation Complete Prior to Procedure Planned Procedure: not applicable Procedure Narrative: EGD Indications for Procedure Pre-Operative Diagnosis: GIB Attestation I attest that I discussed the nature of the procedure; its benefits; risks and complications; and alternatives (and the risks and benefits of such alternatives ), prior to the procedure, with the patient (or the patient's legal healthcare representative). I attest that, if there was a reasonable possibility of needing a blood transfusion, the patient (or the patient's legal healthcare representative) was given the [facility] standardized written summary, pursuant to the [place] Blood Safety Act ([place] Health and Safety Code # 1645, as amended). I attest that I re-evaluated the patient just prior to the surgery and that there has been no change in the patient's H&P, except as documented below: ANAND MCKEON Aug 31, 2017 12:53
[2017-08-31] MEDS ORDERED: Lidocaine 1% MPF 10mg/ml 5ml ONE (13:00)
[2017-08-31] MEDS ORDERED: Propofol 200mg/20ml IV ONE (13:00)
[2017-08-31] MEDS ORDERED: NS 500ML IV ONE (13:10)
--- NOTE | 2017-08-31 14:21 | GI Progress Note ---
Assessment/Plan Problems: (1) Mild epistaxis ICD Codes: R04.0 - Epistaxis SNOMED: 07675010 (2) Thrombocytopenia ICD Codes: D69.6 - Thrombocytopenia, unspecified SNOMED: 666628937 (3) Cirrhosis ICD Codes: K74.60 - Unspecified cirrhosis of liver SNOMED: 06211196 (4) Gastrointestinal hemorrhage ICD Codes: K92.2 - Gastrointestinal hemorrhage, unspecified SNOMED: 30705415 Status: not improved Status Narrative Discussed with Dr. Reddy. Assessment/Plan EGD unable to be done due to patient agitation, rescheduled for tomorrow. - NPO @ NM. prn transfusions octreotide gtt ppi gtt fu labs Subjective Subjective limited Objective Last 24 Hour Vital Signs Date Time Temp Pulse Resp B/P (MAP) Pulse Ox O2 Delivery O2 Flow Rate FiO2 08/31/17 14:09 97 08/31/17 14:05 87 20 138/71 Room Air 08/31/17 14:00 85 20 140/64 Room Air 08/31/17 13:55 83 20 129/59 Simple Mask 3.0 08/31/17 13:50 87 20 133/63 Simple Mask 6.0 08/31/17 13:45 87 20 138/66 Simple Mask 6.0 08/31/17 13:41 95 20 140/69 Simple Mask 6.0 08/31/17 13:36 99.1 93 20 151/57 Simple Mask 6.0 08/31/17 12:00 97.9 92 18 127/90 96 Room Air 08/31/17 08:00 98.0 104 18 150/67 99 Room Air 08/31/17 04:20 96.6 90 20 162/69 97 Room Air 08/31/17 04:00 81 08/31/17 00:00 82 08/30/17 23:37 98.4 79 18 149/74 98 Room Air 08/30/17 17:04 97.3 78 18 113/92 98 Room Air 08/30/17 16:00 75 Intake and Output 08/30/17 08/31/17 19:00 07:00 Intake Total 500 ml 333 ml Output Total 0 ml Balance 500 ml 333 ml IV Total 500 ml 333 ml Output Urine Total 0 ml # Voids 1 # Bowel Movements 1 2 Laboratory Tests Test 08/31/17 05:05 White Blood Count 4.2 K/UL (4.8-10.8) L Red Blood Count 3.00 M/UL (4.70-6.10) L Hemoglobin 10.4 G/DL (14.2-18.0) L Hematocrit 31.6 % (42.0-52.0) L Mean Corpuscular Volume 105 FL (80-99) H Mean Corpuscular Hemoglobin 34.8 PG (27.0-31.0) H Mean Corpuscular Hemoglobin Concent 33.0 G/DL (32.0-36.0) Red Cell Distribution Width 13.0 % (11.6-14.8) Platelet Count 57 K/UL (150-450) L Mean Platelet Volume 7.7 FL (6.5-10.1) Neutrophils (%) (Auto) % (45.0-75.0) Lymphocytes (%) (Auto) % (20.0-45.0) Monocytes (%) (Auto) % (1.0-10.0) Eosinophils (%) (Auto) % (0.0-3.0) Basophils (%) (Auto) % (0.0-2.0) Differential Total Cells Counted 100 Neutrophils % (Manual) 54 % (45-75) Lymphocytes % (Manual) 31 % (20-45) Monocytes % (Manual) 15 % (1-10) H Eosinophils % (Manual) 0 % (0-3) Basophils % (Manual) 0 % (0-2) Band Neutrophils 0 % (0-8) Platelet Estimate Decreased L Platelet Morphology Normal Hypochromasia 1+ Anisocytosis 1+ Macrocytosis 1+ Prothrombin Time 15.9 SEC (9.30-11.50) H Prothromb Time International Ratio 1.5 (0.9-1.1) H Sodium Level 135 MMOL/L (136-145) L Potassium Level 4.2 MMOL/L (3.5-5.1) Chloride Level 105 MMOL/L (98-107) Carbon Dioxide Level 22 MMOL/L (21-32) Anion Gap 8 mmol/L (5-15) Blood Urea Nitrogen 8 mg/dL (7-18) Creatinine 0.8 MG/DL (0.55-1.30) Estimat Glomerular Filtration Rate > 60 mL/min (>60) Glucose Level 106 MG/DL (74-106) Calcium Level 7.4 MG/DL (8.5-10.1) L Total Bilirubin 2.9 MG/DL (0.2-1.0) H Direct Bilirubin 1.0 MG/DL (0.0-0.3) H Aspartate Amino Transf (AST/SGOT) 136 U/L (15-37) H Alanine Aminotransferase (ALT/SGPT) 37 U/L (12-78) Alkaline Phosphatase 90 U/L (46-116) Ammonia 44 umol/L (11-32) H Total Protein 7.0 G/DL (6.4-8.2) Albumin 2.3 G/DL (3.4-5.0) L Globulin 4.7 g/dL Albumin/Globulin Ratio 0.5 (1.0-2.7) L Alpha Fetoprotein Pending Height (Feet): 5 Height (Inches): 4.00 Weight (Pounds): 170 Luz Briceno N.P. Aug 31, 2017 14:21
[2017-08-31] MEDS: Azithromycin 250mg tab ORAL SCH (17:54)
[2017-08-31] MEDS: cefTRIAXone 1 GM in NS 55 ML IVPB SCH (17:55)
[2017-08-31] MEDS: D5 1/2NS w/KCl 20mEq 1,000 ML IV SCH (17:55)
--- NOTE | 2017-08-31 18:55 | Anethesia Preoperative Eval ---
Anesthesia Pre-op PMH/ROS General Date of Evaluation: Aug 31, 2017 Time of Evaluation: 13:08 Anesthesiologist: brenda ASA Score: ASA 3 Mallampati Score Class I : Soft palate, uvula, fauces, pillars visible Class II: Soft palate, uvula, fauces visible Class III: Soft palate, base of uvula visible Class IV: Only hard plate visible Mallampati Classification: Class III Surgeon: isaak Diagnosis: gib Surgical Procedure: egd Anesthesia History: none Social History: smoking - nonsmoker, alcohol use Family History: no anesthesia problems Allergies: Coded Allergies: No Known Allergies (Unverified , 08/29/17) Medications: see eMAR Past Medical History Gastrointestinal/Genitourinary: Reports: other - gi bleed HEENT: Reports: other - epistasis Hematology/Immune: Reports: anemia Anesthesia Pre-op Phys. Exam Physician Exam Last Vital Signs Date Time Temp Pulse Resp B/P (MAP) Pulse Ox O2 Delivery O2 Flow Rate FiO2 08/31/17 14:09 97 08/31/17 14:05 87 20 138/71 Room Air 08/31/17 13:55 3.0 08/31/17 13:36 99.1 Constitutional: NAD Neurologic: CN 2-12 intact Cardiovascular: RRR Respiratory: CTA Gastrointestinal: S/NT/ND Airway Exam Mallampati Score: Class III MO: limited Neck: short TMD: 1fb ROM: limited Teeth: intact Anesthesia Pre-op A/P Labs Hematology Test 08/31/17 05:05 White Blood Count 4.2 K/UL (4.8-10.8) L Red Blood Count 3.00 M/UL (4.70-6.10) L Hemoglobin 10.4 G/DL (14.2-18.0) L Hematocrit 31.6 % (42.0-52.0) L Mean Corpuscular Volume 105 FL (80-99) H Mean Corpuscular Hemoglobin 34.8 PG (27.0-31.0) H Mean Corpuscular Hemoglobin Concent 33.0 G/DL (32.0-36.0) Red Cell Distribution Width 13.0 % (11.6-14.8) Platelet Count 57 K/UL (150-450) L Mean Platelet Volume 7.7 FL (6.5-10.1) Neutrophils (%) (Auto) % (45.0-75.0) Lymphocytes (%) (Auto) % (20.0-45.0) Monocytes (%) (Auto) % (1.0-10.0) Eosinophils (%) (Auto) % (0.0-3.0) Basophils (%) (Auto) % (0.0-2.0) Differential Total Cells Counted 100 Neutrophils % (Manual) 54 % (45-75) Lymphocytes % (Manual) 31 % (20-45) Monocytes % (Manual) 15 % (1-10) H Eosinophils % (Manual) 0 % (0-3) Basophils % (Manual) 0 % (0-2) Band Neutrophils 0 % (0-8) Platelet Estimate Decreased L Platelet Morphology Normal Hypochromasia 1+ Anisocytosis 1+ Macrocytosis 1+ Coagulation Test 08/31/17 05:05 Prothrombin Time 15.9 SEC (9.30-11.50) H Prothromb Time International Ratio 1.5 (0.9-1.1) H Chemistry Test 08/31/17 05:05 Sodium Level 135 MMOL/L (136-145) L Potassium Level 4.2 MMOL/L (3.5-5.1) Chloride Level 105 MMOL/L (98-107) Carbon Dioxide Level 22 MMOL/L (21-32) Anion Gap 8 mmol/L (5-15) Blood Urea Nitrogen 8 mg/dL (7-18) Creatinine 0.8 MG/DL (0.55-1.30) Estimat Glomerular Filtration Rate > 60 mL/min (>60) Glucose Level 106 MG/DL (74-106) Calcium Level 7.4 MG/DL (8.5-10.1) L Total Bilirubin 2.9 MG/DL (0.2-1.0) H Direct Bilirubin 1.0 MG/DL (0.0-0.3) H Aspartate Amino Transf (AST/SGOT) 136 U/L (15-37) H Alanine Aminotransferase (ALT/SGPT) 37 U/L (12-78) Alkaline Phosphatase 90 U/L (46-116) Ammonia 44 umol/L (11-32) H Total Protein 7.0 G/DL (6.4-8.2) Albumin 2.3 G/DL (3.4-5.0) L Globulin 4.7 g/dL Albumin/Globulin Ratio 0.5 (1.0-2.7) L Alpha Fetoprotein Pending Risk Assessment & Plan Assessment: asa3 Plan: mac Status Change Before Surgery: No Pre-Antibiotics Drug: GLORIA Baltazar Aug 31, 2017 18:55
--- NOTE | 2017-08-31 18:59 | Immediate Post-Op Evaluation ---
Immediate Post-Op Evalulation Immediate Post-Op Evalulation Procedure: egd (attempted) Date of Evaluation: Aug 31, 2017 Time of Evaluation: 13:45 IV Fluids: 250ml 0.9ns Blood Products: none Estimated Blood Loss: negligible Blood Pressure Systolic: 152 Blood Pressure Diastolic: 68 Pulse Rate: 87 Respiratory Rate: 18 O2 Sat by Pulse Oximetry: 100 Temperature (Fahrenheit): 99.1 Pain Score (1-10): 0 Nausea: No Vomiting: No Complications none Patient Status: awake, reacts, patent Hydration Status: adequate Drug: GLORIA Baltazar Aug 31, 2017 18:59
--- NOTE | 2017-08-31 19:02 | 48 Hour Post Anesthesia Eval ---
Post Anesthesia Evaluation Procedure: egd (attempted) Date of Evaluation: Aug 31, 2017 Time of Evaluation: 13:47 Blood Pressure Systolic: 138 0: 66 Pulse Rate: 87 Respiratory Rate: 18 Temperature (Fahrenheit): 99.1 O2 Sat by Pulse Oximetry: 100 Airway: patent Nausea: No Vomiting: No Pain Intensity: 0 Hydration Status: adequate Cardiopulmonary Status: stable Mental Status/LOC: patient returned to baseline Post-Anesthesia Complications: none Follow-up care needed: N/A GLORIA RINCON Aug 31, 2017 19:02
[2017-09-01] VITALS: BP 149/68
--- NOTE | 2017-09-01 01:33 | Consultation ---
History of Present Illness General Date patient seen: Aug 31, 2017 Chief Complaint: Gastrointestinal Bleed Present Illness HPI 42 yo confused and agitated. he was unable to provide hx. he received a cocktail Allergies: Coded Allergies: No Known Allergies (Unverified , 08/29/17) Medication History Scheduled No Known Medications* (NKM - No Known Medications*), 0 ., (Reported) Patient History Healthcare decision maker Helen Gil Resuscitation status Full Code Advanced Directive on File Physical Exam Last 24 Hour Vital Signs Date Time Temp Pulse Resp B/P (MAP) Pulse Ox O2 Delivery O2 Flow Rate FiO2 08/31/17 20:00 99.3 89 20 140/75 95 Room Air 20 08/31/17 20:00 114 08/31/17 19:02 87 18 100 08/31/17 18:59 87 18 100 08/31/17 16:00 87 08/31/17 16:00 97.3 85 18 130/73 94 Room Air 87 08/31/17 14:09 97 08/31/17 14:05 87 20 138/71 Room Air 08/31/17 14:00 85 20 140/64 Room Air 08/31/17 13:55 83 20 129/59 Simple Mask 3.0 08/31/17 13:50 87 20 133/63 Simple Mask 6.0 08/31/17 13:45 87 20 138/66 Simple Mask 6.0 08/31/17 13:41 95 20 140/69 Simple Mask 6.0 08/31/17 13:36 99.1 93 20 151/57 Simple Mask 6.0 08/31/17 12:00 103 08/31/17 12:00 97.9 92 18 127/90 96 Room Air 08/31/17 08:00 98.0 104 18 150/67 99 Room Air 08/31/17 08:00 109 08/31/17 04:20 96.6 90 20 162/69 97 Room Air 08/31/17 04:00 81 Intake and Output 08/31/17 09/01/17 19:00 07:00 # Voids 1 # Bowel Movements 1 1 Laboratory Tests Test 08/31/17 05:05 08/31/17 18:55 White Blood Count 4.2 K/UL (4.8-10.8) L Red Blood Count 3.00 M/UL (4.70-6.10) L Hemoglobin 10.4 G/DL (14.2-18.0) L Hematocrit 31.6 % (42.0-52.0) L Mean Corpuscular Volume 105 FL (80-99) H Mean Corpuscular Hemoglobin 34.8 PG (27.0-31.0) H Mean Corpuscular Hemoglobin Concent 33.0 G/DL (32.0-36.0) Red Cell Distribution Width 13.0 % (11.6-14.8) Platelet Count 57 K/UL (150-450) L Mean Platelet Volume 7.7 FL (6.5-10.1) Neutrophils (%) (Auto) % (45.0-75.0) Lymphocytes (%) (Auto) % (20.0-45.0) Monocytes (%) (Auto) % (1.0-10.0) Eosinophils (%) (Auto) % (0.0-3.0) Basophils (%) (Auto) % (0.0-2.0) Differential Total Cells Counted 100 Neutrophils % (Manual) 54 % (45-75) Lymphocytes % (Manual) 31 % (20-45) Monocytes % (Manual) 15 % (1-10) H Eosinophils % (Manual) 0 % (0-3) Basophils % (Manual) 0 % (0-2) Band Neutrophils 0 % (0-8) Platelet Estimate Decreased L Platelet Morphology Normal Hypochromasia 1+ Anisocytosis 1+ Macrocytosis 1+ Prothrombin Time 15.9 SEC (9.30-11.50) H Prothromb Time International Ratio 1.5 (0.9-1.1) H Sodium Level 135 MMOL/L (136-145) L Potassium Level 4.2 MMOL/L (3.5-5.1) Chloride Level 105 MMOL/L (98-107) Carbon Dioxide Level 22 MMOL/L (21-32) Anion Gap 8 mmol/L (5-15) Blood Urea Nitrogen 8 mg/dL (7-18) Creatinine 0.8 MG/DL (0.55-1.30) Estimat Glomerular Filtration Rate > 60 mL/min (>60) Glucose Level 106 MG/DL (74-106) Calcium Level 7.4 MG/DL (8.5-10.1) L Total Bilirubin 2.9 MG/DL (0.2-1.0) H Direct Bilirubin 1.0 MG/DL (0.0-0.3) H Aspartate Amino Transf (AST/SGOT) 136 U/L (15-37) H Alanine Aminotransferase (ALT/SGPT) 37 U/L (12-78) Alkaline Phosphatase 90 U/L (46-116) Ammonia 44 umol/L (11-32) H Total Protein 7.0 G/DL (6.4-8.2) Albumin 2.3 G/DL (3.4-5.0) L Globulin 4.7 g/dL Albumin/Globulin Ratio 0.5 (1.0-2.7) L Alpha Fetoprotein Pending Urine Opiates Screen Negative (NEGATIVE) Urine Barbiturates Screen Negative (NEGATIVE) Phencyclidine (PCP) Screen Negative (NEGATIVE) Urine Amphetamines Screen Negative (NEGATIVE) Urine Benzodiazepines Screen Negative (NEGATIVE) Urine Cocaine Screen Negative (NEGATIVE) Urine Marijuana (THC) Screen Negative (NEGATIVE) Height (Feet): 5 Height (Inches): 4.00 Weight (Pounds): 170 Medications Current Medications Medications (Trade) Dose Ordered Sig/Barron Route PRN Reason Start Time Stop Time Status Last Admin Dose Admin Al Hydroxide/Mg Hydroxide (Mylanta II) 30 ml Q6H PRN ORAL dyspepsia 08/29/17 23:00 09/28/17 22:59 Azithromycin (Zithromax) 500 mg Q24HRS ORAL 08/30/17 18:00 09/06/17 17:59 08/30/17 18:20 Bisacodyl (Dulcolax) 10 mg DAILYPRN PRN RECTAL Constipation 08/29/17 23:00 09/28/17 22:59 Ceftriaxone Sodium 1 gm/ Sodium Chloride 55 ml @ 110 mls/hr Q24HRS IVPB 08/30/17 18:00 09/06/17 17:59 08/31/17 17:55 Dextrose (Dextrose 50%) STAT PRN IV Hypoglycemia 08/29/17 23:00 09/28/17 22:59 Dextrose/ Electrolytes 1,000 ml @ 100 mls/hr Q10H IV 08/31/17 18:00 09/30/17 17:59 08/31/17 17:55 Diphenhydramine HCl (Benadryl) 25 mg Q6H PRN ORAL Itching/Pruritis 08/29/17 23:00 09/28/17 22:59 Docusate Sodium (Colace) 100 mg EVERY 12 HOURS ORAL 08/30/17 09:00 09/29/17 08:59 08/31/17 21:55 Folic Acid 1 mg/ Multivitamins 10 ml/Magnesium Sulfate 2000 mg/ Sodium Chloride 1,014.2 ml @ 100 mls/ hr DAILY@1100 IV 08/30/17 11:00 09/29/17 10:59 08/31/17 11:00 Lorazepam (Ativan 2mg/ml 1ml) 1 mg Q2HR PRN IV for alcohol withdrawal 08/29/17 23:00 09/05/17 22:59 08/31/17 04:27 Lorazepam (Ativan 2mg/ml 1ml) 2 mg Q4H PRN IV For Anxiety 08/31/17 12:30 09/07/17 12:29 08/31/17 09:29 Octreotide Acetate 500 mcg/ Sodium Chloride 500 ml @ 50 mls/hr Q10H IV 08/30/17 12:00 09/29/17 11:59 08/31/17 18:09 Ondansetron HCl (Zofran) 4 mg Q6H PRN IVP Nausea & Vomiting 08/29/17 23:00 09/28/17 22:59 Oseltamivir Phosphate (Tamiflu) 75 mg TWICE A DAY ORAL 08/30/17 09:00 09/04/17 08:59 08/31/17 08:10 Pantoprazole (Protonix) 40 mg EVERY 12 HOURS IVP 08/30/17 09:00 09/29/17 08:59 08/31/17 21:55 Polyethylene Glycol (Miralax) 17 gm DAILYPRN PRN ORAL Constipation 08/29/17 23:00 09/28/17 22:59 Prochlorperazine (Compazine) 10 mg Q6H PRN IVP Nausea & Vomiting 08/29/17 23:00 09/28/17 22:59 Thiamine HCl 100 mg/Sodium Chloride 56 ml @ 56 mls/hr DAILY@1100 IVPB 08/30/17 11:00 09/29/17 10:59 08/31/17 12:17 Rupal Donald M.D. Sep 01, 2017 01:33
[2017-09-01 04:00] VITALS: BP 143/75
[2017-09-01] MEDS: Octreotide Acetate 500 MCG in Sodium Chloride 500ML 499 ML IV SCH ×2 (05:03→14:05)
[2017-09-01] MEDS: D5 1/2NS w/KCl 20mEq 1,000 ML IV SCH ×2 (05:03→13:19)
[2017-09-01 08:00] VITALS: BP 159/80
[2017-09-01] MEDS ORDERED: D5 1/2NS w/KCl 20mEq 1,000 ML IV SCH (08:00)
[2017-09-01 08:30] LABS: HEMATOCRIT 27.9 % (42.0-52.0); HEMOGLOBIN 9.1 G/DL (14.2-18.0); MEAN CORPUSCULAR VOLUME 107 FL (80-99); PLATELET COUNT 38 K/UL (150-450); WHITE BLOOD COUNT 4.7 K/UL (4.8-10.8)
[2017-09-01] MEDS: Oseltamivir 75mg cap ORAL SCH ×2 (08:31→17:50)
[2017-09-01] MEDS: Docusate 100mg cap ORAL SCH ×2 (08:31→21:00)
[2017-09-01] MEDS: Pantoprazole Inj IVP SCH ×2 (08:32→21:04)
[2017-09-01 09:10] LABS: ANION GAP 6 mmol/L (5-15); BLOOD UREA NITROGEN 6 mg/dL (7-18); CARBON DIOXIDE 22 MMOL/L (21-32); CHLORIDE 107 MMOL/L (98-107); CREATININE 0.8 MG/DL (0.55-1.30); PHOSPHORUS 2.6 MG/DL (2.5-4.9); POTASSIUM 4.2 MMOL/L (3.5-5.1); SODIUM 135 MMOL/L (136-145)
--- NOTE | 2017-09-01 09:55 | Anethesia Preoperative Eval ---
Anesthesia Pre-op PMH/ROS General Date of Evaluation: Sep 01, 2017 Time of Evaluation: 09:52 Anesthesiologist: brenda ASA Score: ASA 3 Mallampati Score Class I : Soft palate, uvula, fauces, pillars visible Class II: Soft palate, uvula, fauces visible Class III: Soft palate, base of uvula visible Class IV: Only hard plate visible Mallampati Classification: Class II Surgeon: isaak Diagnosis: gi bleed Surgical Procedure: egd Anesthesia History: none Social History: smoking Family History: no anesthesia problems Allergies: Coded Allergies: No Known Allergies (Unverified , 08/29/17) Medications: see eMAR Past Medical History HEENT: Reports: other - epistasi Hematology/Immune: Reports: anemia Anesthesia Pre-op Phys. Exam Physician Exam Last Vital Signs Date Time Temp Pulse Resp B/P (MAP) Pulse Ox O2 Delivery O2 Flow Rate FiO2 09/01/17 08:00 97.3 87 22 159/80 97 Room Air 08/31/17 13:55 3.0 Constitutional: NAD Neurologic: other Cardiovascular: RRR Respiratory: CTA Gastrointestinal: S/NT/ND Airway Exam Mallampati Score: Class II MO: limited Neck: short TMD: 1fb ROM: limited Anesthesia Pre-op A/P Labs Labs Test 08/29/17 18:50 08/30/17 04:35 08/31/17 05:05 08/31/17 18:55 White Blood Count 6.5 K/UL (4.8-10.8) 7.5 K/UL (4.8-10.8) 4.2 K/UL (4.8-10.8) Red Blood Count 3.56 M/UL (4.70-6.10) 3.19 M/UL (4.70-6.10) 3.00 M/UL (4.70-6.10) Hemoglobin 12.3 G/DL (14.2-18.0) 11.1 G/DL (14.2-18.0) 10.4 G/DL (14.2-18.0) Hematocrit 36.4 % (42.0-52.0) 32.6 % (42.0-52.0) 31.6 % (42.0-52.0) Mean Corpuscular Volume 102 FL (80-99) 102 FL (80-99) 105 FL (80-99) Mean Corpuscular Hemoglobin 34.4 PG (27.0-31.0) 34.8 PG (27.0-31.0) 34.8 PG (27.0-31.0) Mean Corpuscular Hemoglobin Concent 33.7 G/DL (32.0-36.0) 34.0 G/DL (32.0-36.0) 33.0 G/DL (32.0-36.0) Red Cell Distribution Width 12.9 % (11.6-14.8) 12.8 % (11.6-14.8) 13.0 % (11.6-14.8) Platelet Count 36 K/UL (150-450) 73 K/UL (150-450) 57 K/UL (150-450) Mean Platelet Volume 8.3 FL (6.5-10.1) 6.4 FL (6.5-10.1) 7.7 FL (6.5-10.1) Neutrophils (%) (Auto) % (45.0-75.0) % (45.0-75.0) % (45.0-75.0) Lymphocytes (%) (Auto) % (20.0-45.0) % (20.0-45.0) % (20.0-45.0) Monocytes (%) (Auto) % (1.0-10.0) % (1.0-10.0) % (1.0-10.0) Eosinophils (%) (Auto) % (0.0-3.0) % (0.0-3.0) % (0.0-3.0) Basophils (%) (Auto) % (0.0-2.0) % (0.0-2.0) % (0.0-2.0) Differential Total Cells Counted 100 100 100 Neutrophils % (Manual) 47 % (45-75) 58 % (45-75) 54 % (45-75) Lymphocytes % (Manual) 46 % (20-45) 39 % (20-45) 31 % (20-45) Monocytes % (Manual) 3 % (1-10) 3 % (1-10) 15 % (1-10) Eosinophils % (Manual) 0 % (0-3) 0 % (0-3) 0 % (0-3) Basophils % (Manual) 0 % (0-2) 0 % (0-2) 0 % (0-2) Band Neutrophils 4 % (0-8) 0 % (0-8) 0 % (0-8) Platelet Estimate Decreased Decreased Decreased Platelet Morphology Normal Normal Normal Polychromasia 1+ Macrocytosis 2+ 1+ Prothrombin Time 19.4 SEC (9.30-11.50) 19.4 SEC (9.30-11.50) 15.9 SEC (9.30-11.50) Prothromb Time International Ratio 1.8 (0.9-1.1) 1.8 (0.9-1.1) 1.5 (0.9-1.1) Activated Partial Thromboplast Time 51 SEC (23-33) Urine Color Kamila Urine Appearance Clear Urine pH 6 (4.5-8.0) Urine Specific [place] 1.015 (1.005-1.035) Urine Protein 1+ (NEGATIVE) Urine Glucose (UA) Negative (NEGATIVE) Urine Ketones Negative (NEGATIVE) Urine Occult Blood 3+ (NEGATIVE) Urine Nitrite Negative (NEGATIVE) Urine Bilirubin Negative (NEGATIVE) Urine Ictotest Positive Urine Urobilinogen Normal MG/DL (0.0-1.0) Urine Leukocyte Esterase 1+ (NEGATIVE) Urine RBC 2-4 /HPF (0 - 0) Urine WBC 2-4 /HPF (0 - 0) Urine Squamous Epithelial Cells Few /LPF (NONE/OCC) Urine Bacteria Occasional /HPF (NONE) Sodium Level 129 MMOL/L (136-145) 129 MMOL/L (136-145) 135 MMOL/L (136-145) Potassium Level 3.2 MMOL/L (3.5-5.1) 2.9 MMOL/L (3.5-5.1) 4.2 MMOL/L (3.5-5.1) Chloride Level 95 MMOL/L (98-107) 97 MMOL/L (98-107) 105 MMOL/L (98-107) Carbon Dioxide Level 24 MMOL/L (21-32) 22 MMOL/L (21-32) 22 MMOL/L (21-32) Anion Gap 10 mmol/L (5-15) 10 mmol/L (5-15) 8 mmol/L (5-15) Blood Urea Nitrogen 8 mg/dL (7-18) 8 mg/dL (7-18) 8 mg/dL (7-18) Creatinine 1.0 MG/DL (0.55-1.30) 1.0 MG/DL (0.55-1.30) 0.8 MG/DL (0.55-1.30) Estimat Glomerular Filtration Rate > 60 mL/min (>60) > 60 mL/min (>60) > 60 mL/min (>60) Glucose Level 102 MG/DL (74-106) 108 MG/DL (74-106) 106 MG/DL (74-106) Lactic Acid Level 1.30 mmol/L (0.66-2.22) Calcium Level 7.9 MG/DL (8.5-10.1) 7.6 MG/DL (8.5-10.1) 7.4 MG/DL (8.5-10.1) Total Bilirubin 1.8 MG/DL (0.2-1.0) 2.0 MG/DL (0.2-1.0) 2.9 MG/DL (0.2-1.0) Direct Bilirubin 1.0 MG/DL (0.0-0.3) 1.2 MG/DL (0.0-0.3) 1.0 MG/DL (0.0-0.3) Aspartate Amino Transf (AST/SGOT) 197 U/L (15-37) 160 U/L (15-37) 136 U/L (15-37) Alanine Aminotransferase (ALT/SGPT) 48 U/L (12-78) 41 U/L (12-78) 37 U/L (12-78) Alkaline Phosphatase 123 U/L (46-116) 106 U/L (46-116) 90 U/L (46-116) Total Creatine Kinase 944 U/L (26-308) Creatine Kinase MB 3.5 NG/ML (0.0-3.6) Creatine Kinase MB Relative Index 0.3 Troponin I 0.036 ng/mL (0.000-0.056) Total Protein 8.3 G/DL (6.4-8.2) 7.7 G/DL (6.4-8.2) 7.0 G/DL (6.4-8.2) Albumin 2.8 G/DL (3.4-5.0) 2.6 G/DL (3.4-5.0) 2.3 G/DL (3.4-5.0) Globulin 5.5 g/dL 4.7 g/dL Albumin/Globulin Ratio 0.5 (1.0-2.7) 0.5 (1.0-2.7) Magnesium Level 1.4 MG/DL (1.8-2.4) Hepatitis A IgM Antibody Negative (Negative) Hepatitis B Surface Antigen Negative (Negative) Hepatitis B Core IgM Antibody Negative (Negative) Hepatitis C Antibody 0.2 s/co ratio (0.0-0.9) Hypochromasia 1+ Anisocytosis 1+ Ammonia 44 umol/L (11-32) Alpha Fetoprotein 3.3 ng/mL (0.0-8.3) Urine Opiates Screen Negative (NEGATIVE) Urine Barbiturates Screen Negative (NEGATIVE) Phencyclidine (PCP) Screen Negative (NEGATIVE) Urine Amphetamines Screen Negative (NEGATIVE) Urine Benzodiazepines Screen Negative (NEGATIVE) Urine Cocaine Screen Negative (NEGATIVE) Urine Marijuana (THC) Screen Negative (NEGATIVE) Test 09/01/17 08:10 09/01/17 10:30 White Blood Count 4.7 K/UL (4.8-10.8) Red Blood Count 2.60 M/UL (4.70-6.10) Hemoglobin 9.1 G/DL (14.2-18.0) Hematocrit 27.9 % (42.0-52.0) Mean Corpuscular Volume 107 FL (80-99) Mean Corpuscular Hemoglobin 35.0 PG (27.0-31.0) Mean Corpuscular Hemoglobin Concent 32.7 G/DL (32.0-36.0) Red Cell Distribution Width 13.0 % (11.6-14.8) Platelet Count 38 K/UL (150-450) Mean Platelet Volume 7.7 FL (6.5-10.1) Neutrophils (%) (Auto) % (45.0-75.0) Lymphocytes (%) (Auto) % (20.0-45.0) Monocytes (%) (Auto) % (1.0-10.0) Eosinophils (%) (Auto) % (0.0-3.0) Basophils (%) (Auto) % (0.0-2.0) Differential Total Cells Counted 100 Neutrophils % (Manual) 51 % (45-75) Lymphocytes % (Manual) 39 % (20-45) Monocytes % (Manual) 10 % (1-10) Eosinophils % (Manual) 0 % (0-3) Basophils % (Manual) 0 % (0-2) Band Neutrophils 0 % (0-8) Platelet Estimate Decreased Platelet Morphology Normal Hypochromasia 2+ Anisocytosis 1+ Macrocytosis 1+ Sodium Level 135 MMOL/L (136-145) Potassium Level 4.2 MMOL/L (3.5-5.1) Chloride Level 107 MMOL/L (98-107) Carbon Dioxide Level 22 MMOL/L (21-32) Anion Gap 6 mmol/L (5-15) Blood Urea Nitrogen 6 mg/dL (7-18) Creatinine 0.8 MG/DL (0.55-1.30) Estimat Glomerular Filtration Rate > 60 mL/min (>60) Glucose Level 110 MG/DL (74-106) Calcium Level 7.0 MG/DL (8.5-10.1) Phosphorus Level 2.6 MG/DL (2.5-4.9) Magnesium Level 2.1 MG/DL (1.8-2.4) Prothrombin Time 16.2 SEC (9.30-11.50) Prothromb Time International Ratio 1.5 (0.9-1.1) Risk Assessment & Plan Assessment: [email or web address] Plan: mac Status Change Before Surgery: Yes - plt 38k, dr. mulligan will tranfuse platelets prior to procedure GLORIA RINCON Sep 01, 2017 09:55
[2017-09-01] MEDS ORDERED: fentaNYL 100 mcg/2 mL IV PRN (10:00)
[2017-09-01] MEDS ORDERED: Atropine Inj 1mg/10ml Syr IV PRN (10:00)
[2017-09-01] MEDS ORDERED: DiphenhydrAMINE 50mg/ml Inj IVP PRN (10:00)
[2017-09-01] MEDS ORDERED: Midazolam 2mg/2ml Inj IVP PRN (10:00)
--- NOTE | 2017-09-01 11:18 | Diagnostic Imaging Report ---
Indication: Abdominal distention Technique: Tello-scale and duplex images of the upper abdomen were obtained Comparison: Findings: Exam is somewhat limited as technologist reports patient was combative Gallbladder is unremarkable, without stones, wall thickening, nor pericholecystic fluid. Sonographic Bro's sign is negative. Common bile duct measures 5 mm in diameter. No intrahepatic biliary ductal dilatation. Liver demonstrates normal echogenicity, no focal abnormality. Portal vein and hepatic veins are patent. Pancreas is incompletely visualized due to overlying bowel gas, visualized portions are unremarkable. Spleen is unremarkable. Left kidney measures 12.7 cm in length. Right kidney measures 12.7 cm length. Both kidneys demonstrate normal echogenicity. There is no hydronephrosis. No focal abnormality . The abdominal aorta is not demonstrated . Impression: Limited exam, as described Negative for gallstones or dilated ducts or other acute pathology
[2017-09-01 11:22] LABS: INR 1.5 (0.9-1.1)
[2017-09-01] MEDS: MULTIVITAMIN IV SCH (11:52)
[2017-09-01] MEDS: [UNRECOGNIZED DRUG - OTHER] IV SCH (11:52)
[2017-09-01] MEDS: FOLIC ACID IV SCH (11:52)
[2017-09-01] MEDS: MAGNESIUM SULFATE IV SCH (11:52)
[2017-09-01 12:00] VITALS: BP 133/72
--- NOTE | 2017-09-01 12:05 | General Progress Note ---
Assessment/Plan Problem List: (1) Cirrhosis ICD Codes: K74.60 - Unspecified cirrhosis of liver SNOMED: 67629498 (2) Thrombocytopenia ICD Codes: D69.6 - Thrombocytopenia, unspecified SNOMED: 545911214 (3) Gastrointestinal hemorrhage ICD Codes: K92.2 - Gastrointestinal hemorrhage, unspecified SNOMED: 73696304 Assessment/Plan npo ppi abx octreotide EGD in AM tranfuse one unit of plt today Subjective ROS Limited/Unobtainable: No Allergies: Coded Allergies: No Known Allergies (Unverified , 08/29/17) Objective Last 24 Hour Vital Signs Date Time Temp Pulse Resp B/P (MAP) Pulse Ox O2 Delivery O2 Flow Rate FiO2 09/01/17 08:00 97.3 87 22 159/80 97 Room Air 09/01/17 04:00 87 09/01/17 04:00 88 22 143/75 96 Room Air 09/01/17 00:00 98.4 97 18 149/68 93 Room Air 09/01/17 00:00 89 08/31/17 20:00 99.3 89 20 140/75 95 Room Air 20 08/31/17 20:00 114 08/31/17 19:02 87 18 100 08/31/17 18:59 87 18 100 08/31/17 16:00 87 08/31/17 16:00 97.3 85 18 130/73 94 Room Air 87 08/31/17 14:09 97 08/31/17 14:05 87 20 138/71 Room Air 08/31/17 14:00 85 20 140/64 Room Air 08/31/17 13:55 83 20 129/59 Simple Mask 3.0 08/31/17 13:50 87 20 133/63 Simple Mask 6.0 08/31/17 13:45 87 20 138/66 Simple Mask 6.0 08/31/17 13:41 95 20 140/69 Simple Mask 6.0 08/31/17 13:36 99.1 93 20 151/57 Simple Mask 6.0 Intake and Output 08/31/17 09/01/17 19:00 07:00 Output Total 3 ml Balance -3 ml Output Urine Total 3 ml # Voids 1 # Bowel Movements 1 1 Laboratory Tests 08/31/17 18:55: Urine Opiates Screen Negative, Urine Barbiturates Screen Negative, Phencyclidine (PCP) Screen Negative, Urine Amphetamines Screen Negative, Urine Benzodiazepines Screen Negative, Urine Cocaine Screen Negative, Urine Marijuana (THC) Screen Negative 09/01/17 08:10: White Blood Count 4.7L, Red Blood Count 2.60L, Hemoglobin 9.1L, Hematocrit 27.9L , Mean Corpuscular Volume 107H, Mean Corpuscular Hemoglobin 35.0H, Mean Corpuscular Hemoglobin Concent 32.7, Red Cell Distribution Width 13.0, Platelet Count 38L, Mean Platelet Volume 7.7, Neutrophils (%) (Auto) , Lymphocytes (%) ( Auto) , Monocytes (%) (Auto) , Eosinophils (%) (Auto) , Basophils (%) (Auto) , Differential Total Cells Counted 100, Neutrophils % (Manual) 51, Lymphocytes % ( Manual) 39, Monocytes % (Manual) 10, Eosinophils % (Manual) 0, Basophils % ( Manual) 0, Band Neutrophils 0, Platelet Estimate DecreasedL, Platelet Morphology Normal, Hypochromasia 2+, Anisocytosis 1+, Macrocytosis 1+, Sodium Level 135L, Potassium Level 4.2, Chloride Level 107, Carbon Dioxide Level 22, Anion Gap 6, Blood Urea Nitrogen 6L, Creatinine 0.8, Estimat Glomerular Filtration Rate > 60, Glucose Level 110H, Calcium Level 7.0L, Phosphorus Level 2.6, Magnesium Level 2.1 09/01/17 10:30: Prothrombin Time 16.2H, Prothromb Time International Ratio 1.5H Height (Feet): 5 Height (Inches): 4.00 Weight (Pounds): 170 General Appearance: lethargic EENT: normal ENT inspection Neck: supple Cardiovascular: normal rate Respiratory/Chest: decreased breath sounds Abdomen: normal bowel sounds, non tender, soft Extremities: non-tender ANAND MCKEON Sep 01, 2017 12:05
[2017-09-01] MEDS: Thiamine HCl 100 MG in NS 55 ML IVPB SCH (13:19)
--- NOTE | 2017-09-01 15:35 | GI Progress Note ---
Assessment/Plan Problems: (1) Mild epistaxis ICD Codes: R04.0 - Epistaxis SNOMED: 98868235 (2) Thrombocytopenia ICD Codes: D69.6 - Thrombocytopenia, unspecified SNOMED: 338382536 (3) Cirrhosis ICD Codes: K74.60 - Unspecified cirrhosis of liver SNOMED: 88757349 (4) Gastrointestinal hemorrhage ICD Codes: K92.2 - Gastrointestinal hemorrhage, unspecified SNOMED: 13279151 Status: not improved, unchanged Status Narrative Discussed with Dr. Reddy. Assessment/Plan EGD cancelled due to low platelets >> rescheduled for tomorrow. - NPO @ [place]. - transfuse platelets - Vit K x1 prn transfusions octreotide gtt ppi gtt fu labs Subjective Subjective limited Objective Last 24 Hour Vital Signs Date Time Temp Pulse Resp B/P (MAP) Pulse Ox O2 Delivery O2 Flow Rate FiO2 09/01/17 12:00 90 09/01/17 08:00 97.3 87 22 159/80 97 Room Air 09/01/17 08:00 85 09/01/17 04:00 87 09/01/17 04:00 88 22 143/75 96 Room Air 09/01/17 00:00 98.4 97 18 149/68 93 Room Air 09/01/17 00:00 89 08/31/17 20:00 99.3 89 20 140/75 95 Room Air 20 08/31/17 20:00 114 08/31/17 19:02 87 18 100 08/31/17 18:59 87 18 100 08/31/17 16:00 87 08/31/17 16:00 97.3 85 18 130/73 94 Room Air 87 Intake and Output 08/31/17 09/01/17 19:00 07:00 Output Total 3 ml Balance -3 ml Output Urine Total 3 ml # Voids 1 # Bowel Movements 1 1 Laboratory Tests Test 08/31/17 18:55 09/01/17 08:10 09/01/17 10:30 Urine Opiates Screen Negative (NEGATIVE) Urine Barbiturates Screen Negative (NEGATIVE) Phencyclidine (PCP) Screen Negative (NEGATIVE) Urine Amphetamines Screen Negative (NEGATIVE) Urine Benzodiazepines Screen Negative (NEGATIVE) Urine Cocaine Screen Negative (NEGATIVE) Urine Marijuana (THC) Screen Negative (NEGATIVE) White Blood Count 4.7 K/UL (4.8-10.8) L Red Blood Count 2.60 M/UL (4.70-6.10) L Hemoglobin 9.1 G/DL (14.2-18.0) L Hematocrit 27.9 % (42.0-52.0) L Mean Corpuscular Volume 107 FL (80-99) H Mean Corpuscular Hemoglobin 35.0 PG (27.0-31.0) H Mean Corpuscular Hemoglobin Concent 32.7 G/DL (32.0-36.0) Red Cell Distribution Width 13.0 % (11.6-14.8) Platelet Count 38 K/UL (150-450) L Mean Platelet Volume 7.7 FL (6.5-10.1) Neutrophils (%) (Auto) % (45.0-75.0) Lymphocytes (%) (Auto) % (20.0-45.0) Monocytes (%) (Auto) % (1.0-10.0) Eosinophils (%) (Auto) % (0.0-3.0) Basophils (%) (Auto) % (0.0-2.0) Differential Total Cells Counted 100 Neutrophils % (Manual) 51 % (45-75) Lymphocytes % (Manual) 39 % (20-45) Monocytes % (Manual) 10 % (1-10) Eosinophils % (Manual) 0 % (0-3) Basophils % (Manual) 0 % (0-2) Band Neutrophils 0 % (0-8) Platelet Estimate Decreased L Platelet Morphology Normal Hypochromasia 2+ Anisocytosis 1+ Macrocytosis 1+ Sodium Level 135 MMOL/L (136-145) L Potassium Level 4.2 MMOL/L (3.5-5.1) Chloride Level 107 MMOL/L (98-107) Carbon Dioxide Level 22 MMOL/L (21-32) Anion Gap 6 mmol/L (5-15) Blood Urea Nitrogen 6 mg/dL (7-18) L Creatinine 0.8 MG/DL (0.55-1.30) Estimat Glomerular Filtration Rate > 60 mL/min (>60) Glucose Level 110 MG/DL (74-106) H Calcium Level 7.0 MG/DL (8.5-10.1) L Phosphorus Level 2.6 MG/DL (2.5-4.9) Magnesium Level 2.1 MG/DL (1.8-2.4) Prothrombin Time 16.2 SEC (9.30-11.50) H Prothromb Time International Ratio 1.5 (0.9-1.1) H Microbiology Date/Time Source Procedure Growth Status 08/31/17 18:55 Urine,Clean Catch Urine Culture - Preliminary NO GROWTH Resulted Height (Feet): 5 Height (Inches): 4.00 Weight (Pounds): 170 General Appearance: lethargic Cardiovascular: normal rate Respiratory/Chest: no respiratory distress Abdominal Exam: soft Luz Briceno NKya Sep 01, 2017 15:35
[2017-09-01 16:00] VITALS: BP 154/70
[2017-09-01] MEDS ORDERED: Phytonadione 1 MG in D5W 55 ML IVPB ONE (17:00)
[2017-09-01] MEDS: cefTRIAXone 1 GM in NS 55 ML IVPB SCH (17:50)
[2017-09-01] MEDS: Azithromycin 250mg tab ORAL SCH (17:50)
--- NOTE | 2017-09-01 19:47 | General Progress Note ---
Assessment/Plan Status: stable, progressing Assessment/Plan delirium agitation improved cont current meds dc restraints Subjective Date patient seen: Sep 01, 2017 Neurologic/Psychiatric: Reports: anxiety, depressed, emotional problems Allergies: Coded Allergies: No Known Allergies (Unverified , 08/29/17) Objective Last 24 Hour Vital Signs Date Time Temp Pulse Resp B/P (MAP) Pulse Ox O2 Delivery O2 Flow Rate FiO2 09/01/17 12:00 98.6 88 22 133/72 97 Room Air 09/01/17 12:00 90 09/01/17 08:00 97.3 87 22 159/80 97 Room Air 09/01/17 08:00 85 09/01/17 04:00 87 09/01/17 04:00 88 22 143/75 96 Room Air 09/01/17 00:00 98.4 97 18 149/68 93 Room Air 09/01/17 00:00 89 08/31/17 20:00 99.3 89 20 140/75 95 Room Air 20 08/31/17 20:00 114 Intake and Output 08/31/17 09/01/17 19:00 07:00 Output Total 3 ml Balance -3 ml Output Urine Total 3 ml # Voids 1 # Bowel Movements 1 1 Laboratory Tests 09/01/17 08:10: White Blood Count 4.7L, Red Blood Count 2.60L, Hemoglobin 9.1L, Hematocrit 27.9L , Mean Corpuscular Volume 107H, Mean Corpuscular Hemoglobin 35.0H, Mean Corpuscular Hemoglobin Concent 32.7, Red Cell Distribution Width 13.0, Platelet Count 38L, Mean Platelet Volume 7.7, Neutrophils (%) (Auto) , Lymphocytes (%) ( Auto) , Monocytes (%) (Auto) , Eosinophils (%) (Auto) , Basophils (%) (Auto) , Differential Total Cells Counted 100, Neutrophils % (Manual) 51, Lymphocytes % ( Manual) 39, Monocytes % (Manual) 10, Eosinophils % (Manual) 0, Basophils % ( Manual) 0, Band Neutrophils 0, Platelet Estimate DecreasedL, Platelet Morphology Normal, Hypochromasia 2+, Anisocytosis 1+, Macrocytosis 1+, Sodium Level 135L, Potassium Level 4.2, Chloride Level 107, Carbon Dioxide Level 22, Anion Gap 6, Blood Urea Nitrogen 6L, Creatinine 0.8, Estimat Glomerular Filtration Rate > 60, Glucose Level 110H, Calcium Level 7.0L, Phosphorus Level 2.6, Magnesium Level 2.1 09/01/17 10:30: Prothrombin Time 16.2H, Prothromb Time International Ratio 1.5H Height (Feet): 5 Height (Inches): 4.00 Weight (Pounds): 170 General Appearance: no apparent distress, alert Neurologic: alert, oriented x 3, responsive Rupal Donald M.D. Sep 01, 2017 19:47
[2017-09-01 20:28] VITALS: BP 148/85
--- NOTE | 2017-09-01 23:44 | General Progress Note ---
Assessment/Plan Problem List: (1) Severe alcohol withdrawal delirium ICD Codes: F10.231 - Alcohol dependence with withdrawal delirium SNOMED: 3724003 (2) Acute upper gastrointestinal bleeding ICD Codes: K92.2 - Gastrointestinal hemorrhage, unspecified SNOMED: 98340045 (3) Cirrhosis ICD Codes: K74.60 - Unspecified cirrhosis of liver SNOMED: 78270648 (4) Acute blood loss anemia ICD Codes: D62 - Acute posthemorrhagic anemia SNOMED: 619897975 (5) Thrombocytopenia ICD Codes: D69.6 - Thrombocytopenia, unspecified SNOMED: 418246729 (6) Coagulopathy ICD Codes: D68.9 - Coagulation defect, unspecified SNOMED: 80236354 (7) Influenza B ICD Codes: J10.1 - Influenza due to other identified influenza virus with other respiratory manifestations SNOMED: 01189496 (8) Sepsis ICD Codes: A41.9 - Sepsis, unspecified organism SNOMED: 81465662 (9) Hypokalemia ICD Codes: E87.6 - Hypokalemia SNOMED: 99726965 (10) Hyponatremia ICD Codes: E87.1 - Hypo-osmolality and hyponatremia SNOMED: 21943922 (11) Alcohol use disorder ICD Codes: F10.99 - Alcohol use, unspecified with unspecified alcohol-induced disorder SNOMED: 731482, 55502099 (12) Alcohol dependence ICD Codes: F10.20 - Alcohol dependence, uncomplicated SNOMED: 42766728 Status: stable Assessment/Plan Appreciate GI rec's NPO for EGD today s/p 1U plts in ED Trend CBC, INR PPI gtt Octreotide gtt Psych consulted, appreciate rec's Ativan IV PRN alcohol withdrawal Banana bag q24h mIVFs Trend BMP Tamiflu for Influenza B x 5 days DVT ppx: SCDs FULL CODE D/w pt/family, RN, SW/CM, psych, GI regarding mgmt and dispo Subjective Date patient seen: Sep 01, 2017 Time patient seen: 12:00 ROS Limited/Unobtainable: No Constitutional: Reports: no symptoms HEENT: Reports: no symptoms Cardiovascular: Reports: no symptoms Respiratory: Reports: no symptoms Gastrointestinal/Abdominal: Reports: no symptoms Genitourinary: Reports: no symptoms Neurologic/Psychiatric: Reports: no symptoms Endocrine: Reports: no symptoms Hematologic/Lymphatic: Reports: no symptoms Allergies: Coded Allergies: No Known Allergies (Unverified , 08/29/17) All Systems: reviewed and negative except above Subjective No acute o/n events Awaiting EGD today Agitation improved. More awake, calmer. Denies f/c, n/v, d/c, chest pain, SOB Objective Last 24 Hour Vital Signs Date Time Temp Pulse Resp B/P (MAP) Pulse Ox O2 Delivery O2 Flow Rate FiO2 09/01/17 20:48 83 09/01/17 20:28 99.0 85 19 148/85 94 Room Air 09/01/17 16:00 94 09/01/17 16:00 98.8 88 20 154/70 97 Room Air 09/01/17 12:00 98.6 88 22 133/72 97 Room Air 09/01/17 12:00 90 09/01/17 08:00 97.3 87 22 159/80 97 Room Air 09/01/17 08:00 85 09/01/17 04:00 87 09/01/17 04:00 88 22 143/75 96 Room Air 09/01/17 00:00 98.4 97 18 149/68 93 Room Air 09/01/17 00:00 89 Intake and Output 08/31/17 09/01/17 19:00 07:00 Output Total 3 ml Balance -3 ml Output Urine Total 3 ml # Voids 1 # Bowel Movements 1 1 Laboratory Tests 09/01/17 08:10: White Blood Count 4.7L, Red Blood Count 2.60L, Hemoglobin 9.1L, Hematocrit 27.9L , Mean Corpuscular Volume 107H, Mean Corpuscular Hemoglobin 35.0H, Mean Corpuscular Hemoglobin Concent 32.7, Red Cell Distribution Width 13.0, Platelet Count 38L, Mean Platelet Volume 7.7, Neutrophils (%) (Auto) , Lymphocytes (%) ( Auto) , Monocytes (%) (Auto) , Eosinophils (%) (Auto) , Basophils (%) (Auto) , Differential Total Cells Counted 100, Neutrophils % (Manual) 51, Lymphocytes % ( Manual) 39, Monocytes % (Manual) 10, Eosinophils % (Manual) 0, Basophils % ( Manual) 0, Band Neutrophils 0, Platelet Estimate DecreasedL, Platelet Morphology Normal, Hypochromasia 2+, Anisocytosis 1+, Macrocytosis 1+, Sodium Level 135L, Potassium Level 4.2, Chloride Level 107, Carbon Dioxide Level 22, Anion Gap 6, Blood Urea Nitrogen 6L, Creatinine 0.8, Estimat Glomerular Filtration Rate > 60, Glucose Level 110H, Calcium Level 7.0L, Phosphorus Level 2.6, Magnesium Level 2.1 09/01/17 10:30: Prothrombin Time 16.2H, Prothromb Time International Ratio 1.5H Height (Feet): 5 Height (Inches): 4.00 Weight (Pounds): 170 Objective General: alert, cooperative, no distress, appears stated age Head: normocephalic, without obvious abnormality, atraumatic Eyes: conjunctivae/corneas clear. PERRL, EOM's intact Throat: lips, mucosa, and tongue normal. MMM Neck: supple, symmetrical, trachea midline, and no JVD Lungs: clear to auscultation bilaterally Heart: regular rate and rhythm, S1, S2 normal, no murmur, click, rub or gallop Abdomen: soft, non-tender, non-distended, bowel sounds normal Extremities: extremities normal, atraumatic, no cyanosis or edema Pulses: 2+ and symmetric Skin: skin color, texture, turgor normal; no rashes or lesions Neurologic: grossly normal, no focal deficits Thiago Dangelo M.D. Sep 01, 2017 23:44
[2017-09-02] VITALS (9 sets, daily range): BP systolic 118–156; BP diastolic 65–83
[2017-09-02] MEDS: Octreotide Acetate 500 MCG in Sodium Chloride 500ML 499 ML IV SCH ×3 (02:22→17:52)
[2017-09-02] MEDS: D5 1/2NS w/KCl 20mEq 1,000 ML IV SCH ×3 (02:22→10:00)
[2017-09-02] MEDS ORDERED: Midazolam 2mg/2ml Inj ONE (07:00)
[2017-09-02] MEDS ORDERED: Propofol 200mg/20ml IV ONE (07:00)
[2017-09-02] MEDS ORDERED: NS 110ml ONE (07:00)
[2017-09-02] MEDS ORDERED: Lidocaine 1% MPF 10mg/ml 5ml ONE (07:00)
--- NOTE | 2017-09-02 07:10 | Pre-Procedure Note/Attestation ---
Pre-Procedure Note/Attestation Complete Prior to Procedure Procedure Narrative: egd Indications for Procedure Pre-Operative Diagnosis: GIB Attestation I attest that I discussed the nature of the procedure; its benefits; risks and complications; and alternatives (and the risks and benefits of such alternatives ), prior to the procedure, with the patient (or the patient's legal sales representative consultant). I attest that, if there was a reasonable possibility of needing a blood transfusion, the patient (or the patient's legal sales representative consultant) was given the [facility] standardized written summary, pursuant to the Sheng [place] Blood Safety Act ([place] Health and Safety Code # 1645, as amended). I attest that I re-evaluated the patient just prior to the surgery and that there has been no change in the patient's H&P, except as documented below: ANAND MCKEON Sep 02, 2017 07:10
[2017-09-02] MEDS ORDERED: NS 500ML IV ONE (07:30)
--- NOTE | 2017-09-02 07:42 | Endoscopy Procedure Note ---
Endoscopy Procedure Note Indication for Procedure: GIB Procedures Performed: EGD Operative Findings/Diagnosis: GASTRITIS Specimen: yes Pt Tolerated Procedure Well: Yes Estimated Blood Loss: none Anesthesiologist: EWELINA Anesthesia: MAC Implant(s) used?: No 50 yrs or older w/o bx or poly: Not Applicable 10yrs. F/U not recommended: Not Applicable ANAND MCKEON Sep 02, 2017 07:42
--- NOTE | 2017-09-02 07:49 | Anethesia Preoperative Eval ---
Anesthesia Pre-op PMH/ROS General Date of Evaluation: Sep 02, 2017 Time of Evaluation: 07:15 Anesthesiologist: Slade ASA Score: ASA 3 Mallampati Score Class I : Soft palate, uvula, fauces, pillars visible Class II: Soft palate, uvula, fauces visible Class III: Soft palate, base of uvula visible Class IV: Only hard plate visible Mallampati Classification: Class II Surgeon: Maureen Diagnosis: GI bleed. ETOH withdrawal Surgical Procedure: EGD Anesthesia History: none Family History: no anesthesia problems Allergies: Coded Allergies: No Known Allergies (Unverified , 08/29/17) Medications: see eMAR Past Medical History Cardiovascular: Denies: HTN, CAD, ME, valve dz, arrhythmia, other Pulmonary: Reports: other - influenza B Neurologic/Psychiatric: Reports: other - delirum Endocrine: Reports: other - cirrhosis Hematology/Immune: Reports: anemia, bleeding disorder - thrombocytopenia, coaguloapathy , other - thrombocytopenia Musculoskeletal/Integumentary: Denies: OA, RA, DJD, DDD, edema, other Anesthesia Pre-op Phys. Exam Physician Exam Last Vital Signs Date Time Temp Pulse Resp B/P (MAP) Pulse Ox O2 Delivery O2 Flow Rate FiO2 09/02/17 04:00 97.6 78 18 156/75 96 Room Air 08/31/17 13:55 3.0 Constitutional: NAD Neurologic: CN 2-12 intact Cardiovascular: RRR Respiratory: other - diminised at bases Gastrointestinal: S/NT/ND Airway Exam Mallampati Score: Class II MO: full ROM: full Teeth: intact Dentures: no upper, no lower Anesthesia Pre-op A/P Labs Hematology Test 09/01/17 08:10 White Blood Count 4.7 K/UL (4.8-10.8) L Red Blood Count 2.60 M/UL (4.70-6.10) L Hemoglobin 9.1 G/DL (14.2-18.0) L Hematocrit 27.9 % (42.0-52.0) L Mean Corpuscular Volume 107 FL (80-99) H Mean Corpuscular Hemoglobin 35.0 PG (27.0-31.0) H Mean Corpuscular Hemoglobin Concent 32.7 G/DL (32.0-36.0) Red Cell Distribution Width 13.0 % (11.6-14.8) Platelet Count 38 K/UL (150-450) L Mean Platelet Volume 7.7 FL (6.5-10.1) Neutrophils (%) (Auto) % (45.0-75.0) Lymphocytes (%) (Auto) % (20.0-45.0) Monocytes (%) (Auto) % (1.0-10.0) Eosinophils (%) (Auto) % (0.0-3.0) Basophils (%) (Auto) % (0.0-2.0) Differential Total Cells Counted 100 Neutrophils % (Manual) 51 % (45-75) Lymphocytes % (Manual) 39 % (20-45) Monocytes % (Manual) 10 % (1-10) Eosinophils % (Manual) 0 % (0-3) Basophils % (Manual) 0 % (0-2) Band Neutrophils 0 % (0-8) Platelet Estimate Decreased L Platelet Morphology Normal Hypochromasia 2+ Anisocytosis 1+ Macrocytosis 1+ Coagulation Test 09/01/17 10:30 Prothrombin Time 16.2 SEC (9.30-11.50) H Prothromb Time International Ratio 1.5 (0.9-1.1) H Chemistry Test 09/01/17 08:10 Sodium Level 135 MMOL/L (136-145) L Potassium Level 4.2 MMOL/L (3.5-5.1) Chloride Level 107 MMOL/L (98-107) Carbon Dioxide Level 22 MMOL/L (21-32) Anion Gap 6 mmol/L (5-15) Blood Urea Nitrogen 6 mg/dL (7-18) L Creatinine 0.8 MG/DL (0.55-1.30) Estimat Glomerular Filtration Rate > 60 mL/min (>60) Glucose Level 110 MG/DL (74-106) H Calcium Level 7.0 MG/DL (8.5-10.1) L Phosphorus Level 2.6 MG/DL (2.5-4.9) Magnesium Level 2.1 MG/DL (1.8-2.4) Studies Pre-op Studies: EKG - NST 105 BPM Risk Assessment & Plan Assessment: pt A&O x 2-3. Consent obtained by speaking to in person and daughter over the phone. Plan: MAC Status Change Before Surgery: No Pre-Antibiotics Given Within 1 Hr of Incision: No - none per surgeon Megan June CRNA Sep 02, 2017 07:49
--- NOTE | 2017-09-02 08:10 | Immediate Post-Op Evaluation ---
Immediate Post-Op Evalulation Immediate Post-Op Evalulation Procedure: egd (attempted) Date of Evaluation: Sep 02, 2017 Time of Evaluation: 07:55 IV Fluids: 300 ml NSS Blood Products: 0 Estimated Blood Loss: 0 Urinary Output: 0 Blood Pressure Systolic: 118 Blood Pressure Diastolic: 65 Pulse Rate: 70 Respiratory Rate: 22 O2 Sat by Pulse Oximetry: 100 Temperature (Fahrenheit): 98.3 Pain Score (1-10): 0 Nausea: No Vomiting: No Complications none noted at this time Patient Status: awake, reacts, patent Hydration Status: adequate Given Within 1 Hr of Incision: Megan Decker CRNA Sep 02, 2017 08:10
--- NOTE | 2017-09-02 08:11 | 48 Hour Post Anesthesia Eval ---
Post Anesthesia Evaluation Procedure: EGD with biopsy Date of Evaluation: Sep 02, 2017 Time of Evaluation: 08:10 Blood Pressure Systolic: 120 0: 68 Pulse Rate: 75 Respiratory Rate: 20 Temperature (Fahrenheit): 98.3 O2 Sat by Pulse Oximetry: 100 Airway: patent Nausea: No Vomiting: No Pain Intensity: 0 Hydration Status: adequate Mental Status/LOC: patient returned to baseline Post-Anesthesia Complications: none noted Follow-up care needed: patient intructions given Megan June CRNA Sep 02, 2017 08:11
[2017-09-02] MEDS: Pantoprazole Inj IVP SCH ×2 (09:52→21:07)
[2017-09-02] MEDS: Docusate 100mg cap ORAL SCH ×2 (09:52→21:07)
[2017-09-02] MEDS: Oseltamivir 75mg cap ORAL SCH ×2 (09:52→17:42)
[2017-09-02] MEDS ORDERED: VITAMIN B1100 MG PO (10:22)
[2017-09-02] MEDS ORDERED: MULTIVITAMINS1 EA14 PO (10:22)
[2017-09-02] MEDS ORDERED: FOLIC ACID1 M1 PO (10:22)
--- NOTE | 2017-09-02 11:00 | Procedure Note ---
DATE OF PROCEDURE: 09/02/2017 SURGEON: Garcia Reddy M.D. REFERRING PHYSICIAN: Terrie Peterson M.D. PROCEDURE: Upper endoscopy with biopsy. ANESTHESIA: Per Slade LEGGETT. INSTRUMENT: Olympus adult flexible upper endoscope. INDICATION: GI bleeding. The procedure, risks, benefits, and possible consequences, including hemorrhage, aspiration, perforation and infection, and alternative treatments, were explained to the patient/legal guardian by Dr. Garcia Reddy and the patient/legal guardian understood and accepted these risks. DESCRIPTION OF PROCEDURE: After informed consent was obtained and the patient was adequately sedated, Olympus upper endoscope was advanced from mouth into the second portion of duodenum and retroflexion performed of the stomach. The patient had diffuse gastritis. Random biopsy from antrum and body was obtained to rule out H. pylori infection, otherwise the rest of the exam was grossly normal. There are no ulcerations. No esophageal and no gastric varices. No significant portal hypertensive gastropathy. The patient tolerated the procedure well without any complication. SUMMARY OF FINDINGS: Gastritis, otherwise normal endoscopic examination. RECOMMENDATIONS: Follow up biopsies and treat accordingly. Resume diet. The patient is okay to be discharged from GI standpoint and follow as an outpatient. I want to thank Dr. Peterson for this kind referral. Garcia Reddy M.D. DR: ANNELISE JOB#: [id number] CC: Terrie Peterson M.D.; Fax#: [phone]
--- NOTE | 2017-09-02 11:05 | General Progress Note ---
Assessment/Plan Problem List: (1) Severe alcohol withdrawal delirium ICD Codes: F10.231 - Alcohol dependence with withdrawal delirium SNOMED: 0231946 (2) Acute upper gastrointestinal bleeding ICD Codes: K92.2 - Gastrointestinal hemorrhage, unspecified SNOMED: 25979998 (3) Cirrhosis ICD Codes: K74.60 - Unspecified cirrhosis of liver SNOMED: 64240581 (4) Acute blood loss anemia ICD Codes: D62 - Acute posthemorrhagic anemia SNOMED: 870123267 (5) Thrombocytopenia ICD Codes: D69.6 - Thrombocytopenia, unspecified SNOMED: 421927701 (6) Coagulopathy ICD Codes: D68.9 - Coagulation defect, unspecified SNOMED: 59395702 (7) Influenza B ICD Codes: J10.1 - Influenza due to other identified influenza virus with other respiratory manifestations SNOMED: 86419428 (8) Sepsis ICD Codes: A41.9 - Sepsis, unspecified organism SNOMED: 88721118 (9) Hypokalemia ICD Codes: E87.6 - Hypokalemia SNOMED: 93371716 (10) Hyponatremia ICD Codes: E87.1 - Hypo-osmolality and hyponatremia SNOMED: 36912435 (11) Alcohol use disorder ICD Codes: F10.99 - Alcohol use, unspecified with unspecified alcohol-induced disorder SNOMED: 377602, 94952542 (12) Alcohol dependence ICD Codes: F10.20 - Alcohol dependence, uncomplicated SNOMED: 54217811 (13) Gastritis ICD Codes: K29.70 - Gastritis, unspecified, without bleeding SNOMED: 3095812 Status: stable Assessment/Plan Appreciate GI rec's s/p EGD on 09/02/17 which showed gastritis s/p 1U plts on 09/01/17 s/p 1U plts in ED Trend CBC, INR D/c PPI gtt and octreotide gtt Psych consulted, appreciate rec's SW has discussed alcohol treatment programs with pt's family and appears pt is not amenable at this time Ativan IV PRN alcohol withdrawal Banana bag q24h mIVFs Trend BMP Tamiflu for Influenza B x 5 days (08/29-09/03) DC planning likely home tomorrow DVT ppx: SCDs FULL CODE D/w pt/family, RN, SW/CM, psych, GI regarding mgmt and dispo Subjective Date patient seen: Sep 02, 2017 Time patient seen: 11:05 ROS Limited/Unobtainable: No Constitutional: Reports: no symptoms HEENT: Reports: no symptoms Cardiovascular: Reports: no symptoms Respiratory: Reports: no symptoms Gastrointestinal/Abdominal: Reports: no symptoms Genitourinary: Reports: no symptoms Neurologic/Psychiatric: Reports: no symptoms Endocrine: Reports: no symptoms Hematologic/Lymphatic: Reports: no symptoms Allergies: Coded Allergies: No Known Allergies (Unverified , 08/29/17) All Systems: reviewed and negative except above Subjective No acute o/n events s/p EGD today which showed gastritis No longer w/ agitation. More awake, calmer. Denies f/c, n/v, d/c, chest pain, SOB Objective Last 24 Hour Vital Signs Date Time Temp Pulse Resp B/P (MAP) Pulse Ox O2 Delivery O2 Flow Rate FiO2 09/02/17 08:15 98.5 71 23 126/77 100 Room Air 09/02/17 08:11 75 20 100 09/02/17 08:10 70 22 100 09/02/17 08:05 71 23 130/83 100 Simple Mask 6.0 09/02/17 08:00 73 31 127/67 100 Simple Mask 6.0 09/02/17 08:00 72 09/02/17 07:55 98.3 73 24 118/65 100 Simple Mask 6.0 09/02/17 04:00 97.6 78 18 156/75 96 Room Air 09/02/17 04:00 79 09/02/17 00:00 87 09/02/17 00:00 98.2 76 18 146/80 96 Room Air 09/01/17 20:48 83 09/01/17 20:28 99.0 85 19 148/85 94 Room Air 09/01/17 16:00 94 09/01/17 16:00 98.8 88 20 154/70 97 Room Air 09/01/17 12:00 98.6 88 22 133/72 97 Room Air 09/01/17 12:00 90 Intake and Output 09/01/17 09/02/17 19:00 07:00 Intake Total 1786 ml Output Total 300 ml Balance 1486 ml IV Total 1786 ml Output Urine Total 300 ml # Voids 2 2 # Bowel Movements 2 2 Height (Feet): 5 Height (Inches): 4.00 Weight (Pounds): 170 Objective General: alert, cooperative, no distress, appears stated age Head: normocephalic, without obvious abnormality, atraumatic Eyes: conjunctivae/corneas clear. PERRL, EOM's intact Throat: lips, mucosa, and tongue normal. MMM Neck: supple, symmetrical, trachea midline, and no JVD Lungs: clear to auscultation bilaterally Heart: regular rate and rhythm, S1, S2 normal, no murmur, click, rub or gallop Abdomen: soft, non-tender, non-distended, bowel sounds normal Extremities: extremities normal, atraumatic, no cyanosis or edema Pulses: 2+ and symmetric Skin: skin color, texture, turgor normal; no rashes or lesions Neurologic: grossly normal, no focal deficits Thiago Dangelo M.D. Sep 02, 2017 11:05
[2017-09-02] MEDS: MAGNESIUM SULFATE IV SCH (11:15)
[2017-09-02] MEDS: MULTIVITAMIN IV SCH (11:15)
[2017-09-02] MEDS: [UNRECOGNIZED DRUG - OTHER] IV SCH (11:15)
[2017-09-02] MEDS: FOLIC ACID IV SCH (11:15)
[2017-09-02 12:04] LABS: HEMATOCRIT 29.2 % (42.0-52.0); HEMOGLOBIN 9.6 G/DL (14.2-18.0); MEAN CORPUSCULAR VOLUME 107 FL (80-99); PLATELET COUNT 60 K/UL (150-450); RED BLOOD COUNT 2.74 M/UL (4.70-6.10); RED CELL DISTRIBUTION WIDTH 12.6 % (11.6-14.8)
[2017-09-02 12:10] LABS: ANION GAP 8 mmol/L (5-15); BLOOD UREA NITROGEN 6 mg/dL (7-18); CALCIUM 7.7 MG/DL (8.5-10.1); CARBON DIOXIDE 24 MMOL/L (21-32); CHLORIDE 106 MMOL/L (98-107); CREATININE 0.8 MG/DL (0.55-1.30); INR 1.5 (0.9-1.1); SODIUM 138 MMOL/L (136-145)
[2017-09-02] MEDS: Thiamine HCl 100 MG in NS 55 ML IVPB SCH (13:41)
[2017-09-02] MEDS: Azithromycin 250mg tab ORAL SCH (17:43)
[2017-09-02] MEDS: cefTRIAXone 1 GM in NS 55 ML IVPB SCH (17:43)
[2017-09-03] VITALS: BP 125/76
[2017-09-03 04:00] VITALS: BP 121/77
[2017-09-03] MEDS: Octreotide Acetate 500 MCG in Sodium Chloride 500ML 499 ML IV SCH (05:13)
[2017-09-03 07:50] VITALS: BP 148/67
[2017-09-03] MEDS: Pantoprazole Inj IVP SCH (08:10)
[2017-09-03] MEDS: Oseltamivir 75mg cap ORAL SCH (08:11)
[2017-09-03] MEDS: Docusate 100mg cap ORAL SCH (08:11)
[2017-09-03] MEDS ORDERED: NS 275ml ONE (11:24)
[2017-09-03] MEDS ORDERED: Tubing Blood Filter IV ONE (11:24)
[2017-09-03] MEDS ORDERED: Tubing IV Secondary IV ONE (11:24)
[2017-09-03] MEDS ORDERED: NS 500ML ONE (11:24)
--- NOTE | 2017-09-03 16:29 | GI Progress Note ---
Assessment/Plan Problems: (1) Mild epistaxis ICD Codes: R04.0 - Epistaxis SNOMED: 71852047 (2) Thrombocytopenia ICD Codes: D69.6 - Thrombocytopenia, unspecified SNOMED: 007130427 (3) Cirrhosis ICD Codes: K74.60 - Unspecified cirrhosis of liver SNOMED: 70379669 (4) Gastrointestinal hemorrhage ICD Codes: K92.2 - Gastrointestinal hemorrhage, unspecified SNOMED: 54454926 Status: stable Status Narrative Discussed with Dr. Reddy. Assessment/Plan SUMMARY OF FINDINGS: Gastritis, otherwise normal endoscopic examination. RECOMMENDATIONS: Follow up biopsies and treat accordingly. Resume diet. The patient is okay to be discharged from GI standpoint and follow as an outpatient. Subjective Subjective limited Objective Last 24 Hour Vital Signs Date Time Temp Pulse Resp B/P (MAP) Pulse Ox O2 Delivery O2 Flow Rate FiO2 09/03/17 08:00 88 09/03/17 07:50 97.8 75 19 148/67 92 Room Air 09/03/17 04:00 69 09/03/17 04:00 98.2 70 24 121/77 95 Room Air 09/03/17 00:00 91 09/03/17 00:00 98.1 75 20 125/76 93 Room Air 09/02/17 20:00 98.3 83 22 128/69 94 Room Air 09/02/17 20:00 80 Intake and Output 09/02/17 09/03/17 19:00 07:00 Intake Total 836 ml 436 ml Balance 836 ml 436 ml Intake Oral 236 ml 436 ml IV Total 600 ml # Voids 1 1 # Bowel Movements 2 2 Height (Feet): 5 Height (Inches): 4.00 Weight (Pounds): 170 General Appearance: WD/WN, no apparent distress, alert Cardiovascular: normal rate Respiratory/Chest: normal breath sounds, no respiratory distress Abdominal Exam: normal bowel sounds, non tender, soft Extremities: normal range of motion, non-tender Luz Briceno N.P. Sep 03, 2017 16:28
--- NOTE | 2017-09-04 11:38 | Diagnostic Imaging Report ---
APPROVED REPORT CPT Code: 70456 Present Symptoms Comments: R/O DVT BILATERAL: Imaging reveals a patent deep venous system bilaterally. There is no evidence of thrombus within the femoral, popliteal or tibial segments. The greater saphenous veins are also within normal limits. Doppler indicates normal spontaneous flow within these segments.
--- NOTE | 2017-09-09 17:33 | Cardiology Report ---
APPROVED REPORT EKG Measurement Heart [id number] VT [id number] Sinus tachycardia Otherwise normal ECG
--- NOTE | 2017-09-10 17:31 | Discharge Summary ---
Discharge Summary Hospital Course Date of Admission Aug 29, 2017 at 20:19 Date of Discharge Sep 03, 2017 at 11:25 Admitting Diagnosis UPPER GI BLEED, ALCOHOL WITHDRAWAL HPI Joseph Harris is a 42 year old male who was admitted on Aug 29, 2017 at 20:19 for Upper Gastroinstestinal Bleed,Alcohol Hospital Course [id number] Discharge Discharge Disposition Patient was discharged to Home (01) Discharge Diagnoses: Akua Edwards NP Sep 10, 2017 17:31
--- NOTE | 2017-09-11 16:00 | Discharge Summary 2 SIG ---
DATE OF ADMISSION: 08/29/2017 DATE OF DISCHARGE: 09/03/2017 CONSULTANTS: 1. Garcia Reddy M.D. 2. Rupal Donald M.D. BRIEF HOSPITAL COURSE: The patient is a 42-year-old male with past medical history significant for alcoholic cirrhosis, was brought in by family member after increased hematemesis. The patient has history of alcohol abuse and has been vomiting for the past four days. In ED, he was found to have influenza B positive and was started on Tamiflu. PTT was noted to be elevated to 36 and INR was 1.8. He was given one unit of platelet transfusion and was started on Protonix and octreotide drip. He was given banana bag and IV hydration. He was initially placed on NPO. CBC was monitored. The patient was confused and agitated. He was seen by psychiatrist. On 09/02/2017, he underwent an EGD with findings of gastritis. Biopsy showed negative for H. pylori. Protonix and octreotide drip was discontinued. The patient was given five days of Tamiflu treatment for influenza B. The patient was eventually discharged home. FINAL DIAGNOSES: 1. Severe alcohol withdrawal with delirium. 2. Acute upper gastrointestinal bleed. 3. Liver cirrhosis. 4. Acute blood loss anemia. 5. Thrombocytopenia. 6. Coagulopathy. 7. Acute influenza B infection. 8. Sepsis. 9. Hypokalemia. 10. Hyponatremia. 11. Alcohol use disorder. 12. Alcohol dependence. 13. Gastritis. DISPOSITION: The patient was discharged home. DISCHARGE MEDICATIONS: Refer to medication list. DISCHARGE INSTRUCTIONS: Follow up with PMD in a week. Thiago Dangelo M.D. I have been assigned to dictate discharge summary on this account and I was not involved in the patient's management. Akua Edwards N.P. DR: CRISTIAN JOB#: [id number] CC:
== END 2017-09-03 11:25 | disposition home or self-care (01) | DRG 720 ==
LOC: EMR 18:46 → 2E 20:19 → EDBEDREQ 08-30 06:34 → 2E 08-30 13:19
PROC: 30233R1 Transfusion of Nonautologous Platelets into Peripheral Vein, Percutaneous Approach (ICD-10-PCS; principal; 2017-08-30)
PROC: 0DB68ZX Excision of Stomach, Via Natural or Artificial Opening Endoscopic, Diagnostic (ICD-10-PCS; 2017-09-02)
DX: A41.9 Sepsis, unspecified organism (principal); F10.231 Alcohol dependence with withdrawal delirium; D68.9 Coagulation defect, unspecified; K92.0 Hematemesis; D69.6 Thrombocytopenia, unspecified; D62 Acute posthemorrhagic anemia; E87.1 Hypo-osmolality and hyponatremia; K70.30 Alcoholic cirrhosis of liver without ascites; R04.0 Epistaxis; Z72.89 Other problems related to lifestyle; K29.70 Gastritis, unspecified, without bleeding; J10.1 Influenza due to other identified influenza virus with other respiratory manifestations; E87.6 Hypokalemia
CPT/HCPCS: 36415; 71045; 76700; 80048; 80053; 80076; 80307; 81003; 82105; 82140; 82248; 82550; 82553; 83605; 83735; 84100; 84484; 85007; 85025; 85610; 85730; 86705; 86709; 86710; 86803; 86850; 86900; 86901; 87040; 87086; 87340; 93005; 93970; 94003; 94150; 99285; J2250; J3430; J8499